=== PATIENT | female | born 1955 | race African-American/Black ===

== ENCOUNTER 2019-01-24 07:04 | Outpatient (CLI) | payer OTHER ==
[~2019-01-24 07:04] MED LIST: ASA325 MG PO; HYZAAR 100-121 UDTAB PO; MECLIZINE HCL25 MG PO
== END 2019-01-24 07:10 | disposition home or self-care (01) ==
LOC: LAB 07:04
DX: D51.1 Vitamin B12 deficiency anemia due to selective vitamin B12 malabsorption with proteinuria (principal); D51.0 Vitamin B12 deficiency anemia due to intrinsic factor deficiency

== ENCOUNTER 2019-05-31 03:20 | Emergency (ER) | payer OTHER ==
[~2019-05-31] VITALS: Ht 165.1 cm; Wt 83.9 kg
[2019-05-31] MEDS ORDERED: TOPROL XL25 M1 (03:36)
[2019-05-31] MEDS ORDERED: ATORVASTATIN CA10 MG (03:36)
== END 2019-05-31 11:46 | disposition home or self-care (01) ==
LOC: ER 03:20
DX: H81.13 Benign paroxysmal vertigo, bilateral (principal); R42 Dizziness and giddiness

== ENCOUNTER 2021-04-22 15:20 | Outpatient (CLI) | payer OTHER ==
[~2021-04-22 15:20] MED LIST changes: +ATORVASTATIN CA10 MG; +TOPROL XL25 M1
== END 2021-04-22 15:30 | disposition home or self-care (01) ==
LOC: PPH VACUNA 15:20
PROVIDERS: ATTEND Emergency Medicine Pediatric Emergency Medicine
DX: Z23 Encounter for immunization (principal)

== ENCOUNTER → 2021-08-18 11:17 | Outpatient (CLI) | payer OTHER | END | disposition home or self-care (01) | LOC: LAB 11:17 | PROVIDERS: ATTEND Radiology Diagnostic Radiology | DX: K57.30 Diverticulosis of large intestine without perforation or abscess without bleeding (principal) ==

== ENCOUNTER 2021-09-09 07:44 | Outpatient (CLI) | payer OTHER | END 2021-09-09 07:47 | disposition home or self-care (01) | LOC: MRI 07:44 | PROVIDERS: ATTEND Internal Medicine Gastroenterology | DX: K57.30 Diverticulosis of large intestine without perforation or abscess without bleeding (principal); K30 Functional dyspepsia; R97.0 Elevated carcinoembryonic antigen [CEA] | CPT/HCPCS: 74183; Q9965 ==

== ENCOUNTER 2021-10-29 07:13 | Outpatient (CLI) | payer OTHER | END 2021-10-29 07:15 | disposition home or self-care (01) | LOC: RAD 07:13 | DX: I15.8 Other secondary hypertension (principal); I10 Essential (primary) hypertension ==

== ENCOUNTER → 2022-05-20 | Outpatient (CLI) | payer OTHER | END | disposition home or self-care (01) | LOC: NUCLEAR 05-18 08:00 | PROVIDERS: ATTEND Internal Medicine | DX: R00.2 Palpitations (principal) ==

== ENCOUNTER 2022-09-17 09:22 | Outpatient (CLI) | payer OTHER | END 2022-09-17 09:26 | disposition home or self-care (01) | LOC: SONOGRAMA 09:22 | PROVIDERS: ATTEND Specialist | DX: R22.2 Localized swelling, mass and lump, trunk (principal) ==

== ENCOUNTER → 2022-10-26 08:38 | Outpatient (CLI) | payer OTHER | END | disposition home or self-care (01) | LOC: LAB 08:38 | PROVIDERS: ATTEND Specialist | DX: E03.9 Hypothyroidism, unspecified (principal); R22.1 Localized swelling, mass and lump, neck; I10 Essential (primary) hypertension; E11.9 Type 2 diabetes mellitus without complications ==

== ENCOUNTER 2022-11-03 06:50 | Day surgery (SDC) | payer OTHER ==
[~2022-11-03 06:50] MED LIST changes: +AMLODIPINE-OLM1 EAC2 PO; +COZAAR100 MG PO; +METFO PO; +PLAVIX75 MG PO; +TIROSINT25 MCG PO; +TOPROL XL25 M1 PO
== END 2022-11-03 17:35 | disposition home or self-care (01) ==
LOC: CIR.AMB 06:50
PROVIDERS: ATTEND Specialist
DX: D17.0 Benign lipomatous neoplasm of skin and subcutaneous tissue of head, face and neck (principal); L72.0 Epidermal cyst; Z88.6 Allergy status to analgesic agent; Z20.822 Contact with and (suspected) exposure to COVID-19

== ENCOUNTER 2023-02-22 09:39 | Outpatient (CLI) | payer OTHER | END 2023-02-22 09:43 | disposition home or self-care (01) | LOC: RAD 09:39 | PROVIDERS: ATTEND Obstetrics & Gynecology Gynecologic Oncology | DX: Z01.818 Encounter for other preprocedural examination (principal); Z20.822 Contact with and (suspected) exposure to COVID-19; N39.0 Urinary tract infection, site not specified; D64.9 Anemia, unspecified; R79.89 Other specified abnormal findings of blood chemistry; Z88.6 Allergy status to analgesic agent ==

== ENCOUNTER 2023-03-01 08:15 | Inpatient (IN) | payer OTHER ==
[~2023-03-01] VITALS: Ht 157.5 cm; Wt 81.6 kg
[2023-03-04] MEDS ORDERED: EZETIMIBE10 MG (14:54)
[2023-03-04] MEDS ORDERED: SPIRONOLACTONE25 MG (14:54)
[2023-03-04] MEDS ORDERED: LOSARTAN POTAS100 MG (14:54)
[2023-03-04] MEDS ORDERED: METFORMIN HCL750 MG (14:54)
[2023-03-04] MEDS ORDERED: AMLODIPINE BESYL5 MG (14:54)
[2023-03-04 20:07] LABS: HEMATOCRIT 37.6 % (36.0-45.00); HEMOGLOBIN 12.4 g/dL (12.0-15.00); MEAN CELL VOLUME 95.3 fL (80.00-100.00); MEAN CORPUSCULAR HEMOGLOBIN 31.4 pg (27.00-32.0); MEAN CORPUSCULAR HGB CONC 32.9 g/dl (32.0-36.0); PLATELET COUNT 370 K/uL (150-450); RED BLOOD COUNT 3.95 M/uL (4.00-6.00)
[2023-03-04 20:23] LABS: ALBUMIN 3.2 gm/dL (3.4-5.0); CALCIUM 8.8 mg/dL (8.5-10.1); CREATININE SERUM 0.68 mg/dL (0.55-1.02); GFR 86.57; MAGNESIUM 2.1 mg/dL (1.8-2.4); PHOSPHOROUS 3.9 mg/dL (2.5-4.9); POTASSIUM 4.58 mEq/L (3.5-5.1)
[2023-03-05 05:36] LABS: ALBUMIN 3.1 gm/dL (3.4-5.0); CALCIUM 8.8 mg/dL (8.5-10.1); CREATININE SERUM 0.52 mg/dL (0.55-1.02); GFR 117.62; PHOSPHOROUS 3.1 mg/dL (2.5-4.9); POTASSIUM 4.88 mEq/L (3.5-5.1)
[2023-03-05 08:58] LABS: HEMATOCRIT 34.9 % (36.0-45.00); HEMOGLOBIN 11.9 g/dL (12.0-15.00); MEAN CELL VOLUME 92.2 fL (80.00-100.00); MEAN CORPUSCULAR HEMOGLOBIN 31.5 pg (27.00-32.0); MEAN CORPUSCULAR HGB CONC 34.2 g/dl (32.0-36.0); PLATELET COUNT 376 K/uL (150-450); RED BLOOD COUNT 3.79 M/uL (4.00-6.00); RED CELL DISTRIBUTION WIDTH 14.7 % (11.5-14.5)
== END 2023-03-05 15:54 | disposition home or self-care (01) | DRG 741 ==
LOC: O/R 03-04 07:13 → SURG 03-04 08:15 → OB/GYN 03-04 19:59 → SURG 03-04 21:30 → OB/GYN 03-05 15:54
PROVIDERS: ADMIT Obstetrics & Gynecology Gynecologic Oncology; ATTEND Obstetrics & Gynecology Gynecologic Oncology
PROC: 0UT24ZZ Resection of Bilateral Ovaries, Percutaneous Endoscopic Approach (ICD-10-PCS; 2023-03-04)
PROC: 0UT74ZZ Resection of Bilateral Fallopian Tubes, Percutaneous Endoscopic Approach (ICD-10-PCS; 2023-03-04)
PROC: 07BD4ZZ Excision of Aortic Lymphatic, Percutaneous Endoscopic Approach (ICD-10-PCS; 2023-03-04)
PROC: 07BC4ZZ Excision of Pelvis Lymphatic, Percutaneous Endoscopic Approach (ICD-10-PCS; 2023-03-04)
PROC: 0UT94ZZ Resection of Uterus, Percutaneous Endoscopic Approach (ICD-10-PCS; principal; 2023-03-04 21:30)
DX: C54.1 Malignant neoplasm of endometrium (principal); Z20.822 Contact with and (suspected) exposure to COVID-19

== ENCOUNTER 2023-11-12 07:29 | Outpatient (CLI) | payer OTHER ==
[~2023-11-12 07:29] MED LIST changes: +AMLODIPINE BESYL5 MG; +EZETIMIBE10 MG; +LOSARTAN POTAS100 MG; +METFORMIN HCL750 MG; +SPIRONOLACTONE25 MG
== END 2023-11-12 07:37 | disposition home or self-care (01) ==
LOC: SONOGRAMA 07:29
PROVIDERS: ATTEND Internal Medicine Gastroenterology
DX: R10.13 Epigastric pain (principal); E04.8 Other specified nontoxic goiter

== ENCOUNTER 2024-01-21 10:34 | Inpatient (IN) | payer OTHER ==
[~2024-01-21] VITALS: Ht 152.4 cm; Wt 68.0 kg
[2024-01-21] MEDS ORDERED: CRESTOR40 MG PO (11:02)
[2024-01-21] MEDS ORDERED: 0.9 % SODIUM CHLORIDE 1,000 ML IV SCH ×2 (12:34→18:45)
[2024-01-21] MEDS ORDERED: ONDANSETRON HCL 2 MG/ML VIAL IV STA (12:35)
[2024-01-21] MEDS ORDERED: FAMOTIDINE/PF 20 MG in 0.9 % SODIUM CHLORIDE 8 ML IV PUSH STA (12:35)
[2024-01-21 14:04] LABS: HEMATOCRIT 36.2 % (36.0-45.00); HEMOGLOBIN 11.9 g/dL (12.0-15.00); MEAN CELL VOLUME 93.9 fL (80.00-100.00); MEAN CORPUSCULAR HEMOGLOBIN 30.9 pg (27.00-32.0); MEAN CORPUSCULAR HGB CONC 32.9 g/dl (32.0-36.0); PLATELET COUNT 566 K/uL (150-450); RED BLOOD COUNT 3.86 M/uL (4.00-6.00); RED CELL DISTRIBUTION WIDTH 16.6 % (11.5-14.5)
[2024-01-21 15:28] LABS: PH,URINE 8.5 (5.0-8.0); URINE APPEARANCE Error; URINE BILIRRUBIN Negative (NEGATIVE); URINE BLOOD Negative; URINE COLOR Yellow; URINE GLUCOSE Negative (NEGATIVE); URINE KETONE Negative (NEGATIVE); URINE LEUKOCYTE Trace; URINE NITRATE Negative; URINE PROTEIN 30 (NEGATIVE)
[2024-01-21 15:29] LABS: URINE BACTERIA 128.4 uL (0.0-1933); URINE EPITHELIAL CELLS 13.6 uL (0.0-38.8); URINE RBC 63.8 uL (0.0-20.8); URINE WBC 9.7 uL (0.0-23.2)
[2024-01-21 16:02] LABS: HEMATOCRIT 36.8 % (36.0-45.00); HEMOGLOBIN 12.1 g/dL (12.0-15.00); MEAN CELL VOLUME 94.3 fL (80.00-100.00); MEAN CORPUSCULAR HGB CONC 32.8 g/dl (32.0-36.0); PLATELET COUNT 578 K/uL (150-450); RED BLOOD COUNT 3.91 M/uL (4.00-6.00); RED CELL DISTRIBUTION WIDTH 16.7 % (11.5-14.5)
[2024-01-21 16:15] LABS: CALCIUM 9.8 mg/dL (8.5-10.1); CREATININE SERUM 0.62 mg/dL (0.55-1.02); GFR 96.01; POTASSIUM 3.59 mEq/L (3.5-5.1)
[2024-01-21] MEDS ORDERED: DEXTROSE 50 % IN WATER 0.5 G/ML DISP.SYRIN IV PRN (18:45)
[2024-01-21] MEDS ORDERED: INSULIN LISPRO 1,000 UNIT/10 ML UNITS SUBCUTANEO PRN (18:45)
[2024-01-21] MEDS ORDERED: PIPERACILLIN/TAZOBACTAM SODIUM 3.375 GM in 0.9 % SODIUM CHLORIDE 100 ML IV SCH (18:55)
[2024-01-21] MEDS ORDERED: ENALAPRILAT DIHYDRATE 1.25 MG/ML VIAL IV PRN (19:00)
[2024-01-21] MEDS ORDERED: MORPHINE SULFATE 4 MG/ML VIAL IV PRN (19:00)
[2024-01-21] MEDS ORDERED: ACETAMINOPHEN 500 MG GEL..CAP PO PRN (19:00)
[2024-01-22 02:31] VITALS: BP 134/67
[2024-01-22 04:21] LABS: HEMOGLOBIN 10.3 g/dL (12.0-15.00); MEAN CELL VOLUME 92.3 fL (80.00-100.00); MEAN CORPUSCULAR HEMOGLOBIN 30.7 pg (27.00-32.0); MEAN CORPUSCULAR HGB CONC 33.3 g/dl (32.0-36.0); PLATELET COUNT 501 K/uL (150-450); RED BLOOD COUNT 3.36 M/uL (4.00-6.00); RED CELL DISTRIBUTION WIDTH 16.7 % (11.5-14.5)
[2024-01-22 04:25] LABS: ERYTHROCYTE SEDIMENTATION RATE 59 mm/hr; INR 1.15; PARTIAL THROMBOPLASTIN TIME 32.8 SECONDS (22.0-34.0); PROTHROMBIN TIME 12.4 SECONDS (9.0-11.5)
[2024-01-22 04:36] LABS: ALBUMIN 3.1 gm/dL (3.4-5.0); BILIRUBIN TOTAL 0.81 mg/dL (0.3-1.2); BILIRUBIN,CONJUGATED 0.24 mg/dL (0.0-0.2); BILIRUBIN,UNCONJUGATED 0.57 mg/dL (0.0-0.6); CALCIUM 9.1 mg/dL (8.5-10.1); CHOL HDL RATIO 1.9 (0-5.0); CREATININE SERUM 0.55 mg/dL (0.55-1.02); GFR 110.25; POTASSIUM 3.7 mEq/L (3.5-5.1); TOTAL PROTEIN 6.1 gm/dL (6.4-8.2)
[2024-01-22] MEDS ORDERED: LEVOTHYROXINE SODIUM 25 MCG TABLET PO SCH (06:00)
[2024-01-22 08:38] LABS: URINE APPEARANCE Cloudy; URINE BILIRRUBIN Negative (NEGATIVE); URINE BLOOD Small; URINE COLOR Yellow; URINE GLUCOSE Negative (NEGATIVE); URINE KETONE Negative (NEGATIVE); URINE LEUKOCYTE Negative; URINE NITRATE Negative; URINE PROTEIN 30 (NEGATIVE); URINE UROBILINOGEN 0.2 E.U./dl
[2024-01-22 08:41] LABS: URINE BACTERIA 154.9 uL (0.0-1933); URINE EPITHELIAL CELLS 10.6 uL (0.0-38.8); URINE RBC 4.8 uL (0.0-20.8); URINE WBC 17.1 uL (0.0-23.2)
[2024-01-22] MEDS ORDERED: PANTOPRAZOLE SODIUM 40 MG TABLET.DR PO SCH (09:00)
[2024-01-22] MEDS ORDERED: AMLODIPINE BESYLATE 5 MG TABLET PO SCH (09:00)
[2024-01-22] MEDS ORDERED: LOSARTAN POTASSIUM 100 MG TABLET PO SCH (09:00)
[2024-01-22] MEDS ORDERED: ENOXAPARIN SODIUM 40 MG/0.4 ML SYRINGE SUBCUTANEO SCH (09:00)
[2024-01-22 09:08] VITALS: BP 123/60; O2SAT 98
[2024-01-22 09:32] LABS: URINE CAST 0.76 uL (0.0-1.40)
[2024-01-22 09:35] LABS: URINE CRYSTALS MANY /HPF
[2024-01-22] MEDS ORDERED: ONDANSETRON HCL 4 MG in 0.9 % SODIUM CHLORIDE 50 ML IV PRN (11:00)
[2024-01-22] MEDS ORDERED: MORPHINE SULFATE 4 MG/ML CARTRIDGE IV PRN (15:45)
[2024-01-22] MEDS ORDERED: SODIUM CHLORIDE 0.45 % 1,000 ML IV SCH (16:30)
[2024-01-22] MEDS ORDERED: ROSUVASTATIN 40 MG PO SCH (17:00)
[2024-01-22 17:25] VITALS: BP 136/73
[2024-01-23 02:30] VITALS: BP 144/74
[2024-01-23] MEDS ORDERED: DIATRIZOATE MEGLUMINE, SODIUM 30 ML BOTTLE PO ONE (06:00)
[2024-01-23 08:31] VITALS: BP 130/64; O2SAT 99
[2024-01-23] MEDS ORDERED: IRON FUM,PS/FOLIC/BCOMP,C NO.9 1 CAP CAPSULE PO SCH (09:00)
[2024-01-23 17:46] VITALS: BP 120/77
[2024-01-23] MEDS ORDERED: LOPERAMIDE HCL 2 MG CAPSULE PO STA (20:14)
[2024-01-24 02:54] VITALS: BP 134/83; O2SAT 95
[2024-01-24 06:47] LABS: HEMATOCRIT 29.5 % (36.0-45.00); HEMOGLOBIN 10.1 g/dL (12.0-15.00); MEAN CELL VOLUME 92.1 fL (80.00-100.00); MEAN CORPUSCULAR HEMOGLOBIN 31.6 pg (27.00-32.0); MEAN CORPUSCULAR HGB CONC 34.3 g/dl (32.0-36.0); PLATELET COUNT 494 K/uL (150-450); RED BLOOD COUNT 3.21 M/uL (4.00-6.00); RED CELL DISTRIBUTION WIDTH 16.5 % (11.5-14.5)
[2024-01-24 06:51] LABS: ALBUMIN 2.9 gm/dL (3.4-5.0); BILIRUBIN TOTAL 0.67 mg/dL (0.3-1.2); CALCIUM 8.7 mg/dL (8.5-10.1); CREATININE SERUM 0.45 mg/dL (0.55-1.02); GFR 138.97; GLOBULINA 3.1 G/DL (2.4-3.5); MAGNESIUM 1.9 mg/dL (1.8-2.4); PHOSPHOROUS 3.1 mg/dL (2.5-4.9); POTASSIUM 3.68 mEq/L (3.5-5.1)
[2024-01-24 08:09] VITALS: BP 130/69
[2024-01-24 17:08] VITALS: BP 153/72
[2024-01-24 17:10] VITALS: BP 153/72
[2024-01-24] MEDS ORDERED: MORPHINE SULFATE 4 MG/ML CARTRIDGE IV PRN (18:15)
[2024-01-25 00:47] VITALS: BP 134/70; O2SAT 98
[2024-01-25 06:34] LABS: HEMATOCRIT 28.8 % (36.0-45.00); HEMOGLOBIN 9.9 g/dL (12.0-15.00); MEAN CELL VOLUME 92.8 fL (80.00-100.00); MEAN CORPUSCULAR HGB CONC 34.5 g/dl (32.0-36.0); PLATELET COUNT 507 K/uL (150-450); RED CELL DISTRIBUTION WIDTH 16.1 % (11.5-14.5)
[2024-01-25 06:40] LABS: ALBUMIN 2.5 gm/dL (3.4-5.0); BILIRUBIN TOTAL 0.53 mg/dL (0.3-1.2); CALCIUM 8.4 mg/dL (8.5-10.1); CREATININE SERUM 0.43 mg/dL (0.55-1.02); GFR 146.46; GLOBULINA 3.1 G/DL (2.4-3.5); POTASSIUM 3.3 mEq/L (3.5-5.1); TOTAL PROTEIN 5.6 gm/dL (6.4-8.2)
[2024-01-25 08:04] VITALS: BP 140/66
[2024-01-25] MEDS ORDERED: POTASSIUM CHLORIDE IN WATER 100 ML IV NR (13:00)
[2024-01-25 16:05] VITALS: BP 132/73; O2SAT 94
[2024-01-26 01:02] VITALS: BP 130/74; O2SAT 95
[2024-01-26 06:31] LABS: HEMATOCRIT 28.7 % (36.0-45.00); HEMOGLOBIN 9.5 g/dL (12.0-15.00); MEAN CELL VOLUME 92.7 fL (80.00-100.00); MEAN CORPUSCULAR HEMOGLOBIN 30.8 pg (27.00-32.0); MEAN CORPUSCULAR HGB CONC 33.2 g/dl (32.0-36.0); PLATELET COUNT 491 K/uL (150-450); RED BLOOD COUNT 3.09 M/uL (4.00-6.00); RED CELL DISTRIBUTION WIDTH 16.1 % (11.5-14.5)
[2024-01-26 07:00] LABS: ALBUMIN 2.2 gm/dL (3.4-5.0); BILIRUBIN TOTAL 0.4 mg/dL (0.3-1.2); CALCIUM 8.7 mg/dL (8.5-10.1); CREATININE SERUM 0.47 mg/dL (0.55-1.02); GFR 132.17; PHOSPHOROUS 2.3 mg/dL (2.5-4.9); POTASSIUM 3.36 mEq/L (3.5-5.1); TOTAL PROTEIN 5.2 gm/dL (6.4-8.2)
[2024-01-26 08:24] VITALS: BP 124/76
[2024-01-26] MEDS ORDERED: POTASSIUM BICARBONATE/CIT AC 25 MEQ TABLET.EFF PO NR (11:15)
[2024-01-26] MEDS ORDERED: POTASSIUM PHOS,M-BASIC-D-BASIC 15 MM in 0.9 % SODIUM CHLORIDE 250 ML IV NR (11:15)
[2024-01-26] MEDS ORDERED: LIDOCAINE HCL 1% 10ML VIAL IJ ONE (18:15)
[2024-01-26] MEDS ORDERED: BUPIVACAINE HCL 30 ML VIAL IJ ONE (18:15)
[2024-01-26] MEDS ORDERED: CEFAZOLIN SODIUM 1,000 MG VIAL IV ONE (18:15)
[2024-01-27 01:28] VITALS: BP 144/72; O2SAT 90
[2024-01-27] MEDS ORDERED: MORPHINE SULFATE 4 MG/ML CARTRIDGE IV PRN (02:15)
[2024-01-27 07:10] LABS: ALBUMIN 2.1 gm/dL (3.4-5.0); BILIRUBIN TOTAL 0.28 mg/dL (0.3-1.2); CALCIUM 8.3 mg/dL (8.5-10.1); CREATININE SERUM 0.38 mg/dL (0.55-1.02); GFR 168.92; POTASSIUM 3.64 mEq/L (3.5-5.1); TOTAL PROTEIN 5.1 gm/dL (6.4-8.2)
[2024-01-27 07:24] LABS: HEMATOCRIT 26.6 % (36.0-45.00); MEAN CELL VOLUME 91.8 fL (80.00-100.00); MEAN CORPUSCULAR HEMOGLOBIN 31.1 pg (27.00-32.0); MEAN CORPUSCULAR HGB CONC 33.9 g/dl (32.0-36.0); PLATELET COUNT 510 K/uL (150-450); RED CELL DISTRIBUTION WIDTH 16.1 % (11.5-14.5)
[2024-01-27 08:59] VITALS: BP 128/65; O2SAT 94
[2024-01-27] MEDS ORDERED: AMINO ACIDS/PROTEIN HYDROLYS 30 ML BLIST.PACK PO SCH (17:00)
[2024-01-27 17:24] VITALS: BP 114/70; O2SAT 97
[2024-01-28 00:46] VITALS: BP 131/73; O2SAT 92
[2024-01-28 08:08] VITALS: BP 145/74; O2SAT 99
[2024-01-28 17:07] VITALS: BP 135/82; O2SAT 98
[2024-01-28] MEDS ORDERED: MAGNESIUM HYDROXIDE 400 MG/5 ML ML PO ONE (20:30)
[2024-01-28] MEDS ORDERED: LACTULOSE 20 G/30 ML BLIST.PACK PO ONE (20:30)
[2024-01-28] MEDS ORDERED: MINERAL OIL 30 ML BLIST.PACK PO ONE (20:30)
[2024-01-29] VITALS: BP 145/85; O2SAT 98
[2024-01-29 07:35] LABS: ALBUMIN 2.3 gm/dL (3.4-5.0); BILIRUBIN TOTAL 0.26 mg/dL (0.3-1.2); CALCIUM 8.4 mg/dL (8.5-10.1); CREATININE SERUM 0.37 mg/dL (0.55-1.02); GFR 174.2; GLOBULINA 3.4 G/DL (2.4-3.5); POTASSIUM 3.71 mEq/L (3.5-5.1); TOTAL PROTEIN 5.7 gm/dL (6.4-8.2)
[2024-01-29 07:53] LABS: HEMOGLOBIN 9.2 g/dL (12.0-15.00); MEAN CELL VOLUME 91.1 fL (80.00-100.00); MEAN CORPUSCULAR HEMOGLOBIN 30.9 pg (27.00-32.0); MEAN CORPUSCULAR HGB CONC 33.9 g/dl (32.0-36.0); PLATELET COUNT 561 K/uL (150-450); RED BLOOD COUNT 2.97 M/uL (4.00-6.00); RED CELL DISTRIBUTION WIDTH 16.4 % (11.5-14.5)
[2024-01-29 08:59] VITALS: BP 144/71; O2SAT 95
[2024-01-29 16:39] VITALS: BP 135/77
[2024-01-30 01:00] VITALS: BP 97/69; O2SAT 98
[2024-01-30 08:00] VITALS: BP 142/82; O2SAT 96
[2024-01-30 16:58] VITALS: BP 143/78; O2SAT 93
[2024-01-30] MEDS ORDERED: MORPHINE SULFATE 4 MG/ML CARTRIDGE IV PRN (17:30)
[2024-01-30] MEDS ORDERED: ACETAMINOPHEN 500 MG GEL..CAP PO PRN (17:30)
[2024-01-31 01:27] VITALS: BP 128/68; O2SAT 98
[2024-01-31 08:27] VITALS: BP 147/79; O2SAT 96
[2024-01-31 15:50] VITALS: BP 136/78; O2SAT 93
[2024-02-01 00:10] VITALS: BP 135/78
[2024-02-01 06:17] LABS: HEMATOCRIT 27.9 % (36.0-45.00); HEMOGLOBIN 9.4 g/dL (12.0-15.00); MEAN CELL VOLUME 92.3 fL (80.00-100.00); MEAN CORPUSCULAR HEMOGLOBIN 31.2 pg (27.00-32.0); MEAN CORPUSCULAR HGB CONC 33.8 g/dl (32.0-36.0); PLATELET COUNT 716 K/uL (150-450); RED BLOOD COUNT 3.02 M/uL (4.00-6.00)
[2024-02-01 06:34] LABS: ALBUMIN 2.5 gm/dL (3.4-5.0); BILIRUBIN TOTAL 0.27 mg/dL (0.3-1.2); CALCIUM 8.9 mg/dL (8.5-10.1); CREATININE SERUM 0.38 mg/dL (0.55-1.02); GFR 168.92; GLOBULINA 3.3 G/DL (2.4-3.5); MAGNESIUM 1.8 mg/dL (1.8-2.4); PHOSPHOROUS 3.3 mg/dL (2.5-4.9); POTASSIUM 4.3 mEq/L (3.5-5.1); TOTAL PROTEIN 5.8 gm/dL (6.4-8.2)
[2024-02-01 08:15] VITALS: BP 123/80; O2SAT 97
[2024-02-01 17:29] VITALS: BP 150/73
[2024-02-01 17:42] VITALS: BP 136/69
[2024-02-02 00:11] VITALS: BP 151/72; O2SAT 96
[2024-02-02 05:02] LABS: INR 1.05; PARTIAL THROMBOPLASTIN TIME 29.5 SECONDS (22.0-34.0); PROTHROMBIN TIME 11.4 SECONDS (9.0-11.5)
[2024-02-02] MEDS ORDERED: ONDANSETRON HCL 4 MG in 0.9 % SODIUM CHLORIDE 50 ML IV PRN (07:00)
[2024-02-02 09:43] VITALS: BP 131/80; O2SAT 97
[2024-02-02] MEDS ORDERED: BUPIVACAINE HCL/PF 0.25% 30ML VIAL InF ONE (14:45)
[2024-02-02] MEDS ORDERED: HEPARIN SODIUM,PORCINE 500 UNITS/5 ML VIAL IV ONE (14:45)
[2024-02-02] MEDS ORDERED: CEFAZOLIN SODIUM 1,000 MG VIAL IV ONE (15:45)
[2024-02-02 18:36] VITALS: BP 149/69
[2024-02-03 01:35] VITALS: BP 156/80; O2SAT 98
[2024-02-03 07:09] LABS: HEMATOCRIT 26.5 % (36.0-45.00); MEAN CELL VOLUME 92.6 fL (80.00-100.00); MEAN CORPUSCULAR HGB CONC 33.4 g/dl (32.0-36.0); PLATELET COUNT 724 K/uL (150-450); RED BLOOD COUNT 2.86 M/uL (4.00-6.00); RED CELL DISTRIBUTION WIDTH 16.5 % (11.5-14.5)
[2024-02-03 07:26] LABS: MEAN CORPUSCULAR HEMOGLOBIN 30.7 pg (27.00-32.0)
[2024-02-03 07:27] LABS: HEMOGLOBIN 8.8 g/dL (12.0-15.00)
[2024-02-03 08:37] VITALS: BP 110/68; O2SAT 97
[2024-02-03] MEDS ORDERED: LOSARTAN POTAS100 MG PO (13:09)
[2024-02-03] MEDS ORDERED: LEVOTHYROXINE25 MCG PO (13:09)
[2024-02-03] MEDS ORDERED: AMLODIPINE BESYL5 MG PO (13:09)
[2024-02-03] MEDS ORDERED: INTEGRA PLUS C1 EACH PO (13:09)
[2024-02-03] MEDS ORDERED: COLACE100 MG PO (13:09)
[2024-02-03] MEDS ORDERED: CRESTOR40 MG PO (13:10)
== END 2024-02-03 13:22 | disposition home or self-care (01) | DRG 823 ==
LOC: ER 10:36 → MEDI 19:32
PROVIDERS: Emergency Medicine; General Practice; Student in an Organized Health Care Education/Training Program; ADMIT Internal Medicine; ATTEND Internal Medicine
PROC: BW21ZZZ Computerized Tomography (CT Scan) of Abdomen and Pelvis (ICD-10-PCS; 2024-01-21)
PROC: BW21YZZ Computerized Tomography (CT Scan) of Abdomen and Pelvis using Other Contrast (ICD-10-PCS; 2024-01-23)
PROC: BW24YZZ Computerized Tomography (CT Scan) of Chest and Abdomen using Other Contrast (ICD-10-PCS; 2024-01-23)
PROC: 07BJ0ZX Excision of Left Inguinal Lymphatic, Open Approach, Diagnostic (ICD-10-PCS; principal; 2024-01-27)
PROC: 05HM33Z Insertion of Infusion Device into Right Internal Jugular Vein, Percutaneous Approach (ICD-10-PCS; 2024-02-02)
PROC: B513YZA Fluoroscopy of Right Jugular Veins using Other Contrast, Guidance (ICD-10-PCS; 2024-02-02)
PROC: B543ZZA Ultrasonography of Right Jugular Veins, Guidance (ICD-10-PCS; 2024-02-02)
DX: C77.4 Secondary and unspecified malignant neoplasm of inguinal and lower limb lymph nodes (principal); A41.9 Sepsis, unspecified organism; K65.1 Peritoneal abscess; C78.6 Secondary malignant neoplasm of retroperitoneum and peritoneum; E87.0 Hyperosmolality and hypernatremia; J90 Pleural effusion, not elsewhere classified; C54.1 Malignant neoplasm of endometrium; I10 Essential (primary) hypertension; E11.9 Type 2 diabetes mellitus without complications; Z79.4 Long term (current) use of insulin; D63.0 Anemia in neoplastic disease; E03.9 Hypothyroidism, unspecified; E78.5 Hyperlipidemia, unspecified; D75.839 Thrombocytosis, unspecified

== ENCOUNTER 2024-05-19 09:18 | Outpatient (CLI) | payer OTHER ==
[~2024-05-19 09:18] MED LIST changes: +AMLODIPINE BESYL5 MG PO; +COLACE100 MG PO; +CRESTOR40 MG PO; +INTEGRA PLUS C1 EACH PO; +LEVOTHYROXINE25 MCG PO; +LOSARTAN POTAS100 MG PO
== END 2024-05-19 09:21 | disposition home or self-care (01) ==
LOC: SONOGRAMA 09:18
PROVIDERS: ATTEND Internal Medicine
DX: R10.9 Unspecified abdominal pain (principal); C54.1 Malignant neoplasm of endometrium

== ENCOUNTER 2024-05-22 20:53 | Emergency (ER) | payer OTHER ==
[~2024-05-22] VITALS: Ht 160 cm; Wt 67.1 kg
[2024-05-22] MEDS ORDERED: FAMOTIDINE/PF 20 MG in 0.9 % SODIUM CHLORIDE 8 ML IV PUSH STA (22:40)
[2024-05-22] MEDS ORDERED: ONDANSETRON HCL 2 MG/ML VIAL IV ONE (22:45)
[2024-05-22] MEDS ORDERED: 0.9 % SODIUM CHLORIDE 1,000 ML IV SCH (22:45)
[2024-05-22] MEDS ORDERED: ONDANSETRON HCL 2 MG/ML VIAL ONE (23:16)
[2024-05-22] MEDS ORDERED: FAMOTIDINE/PF 20 MG/2 ML VIAL ONE (23:16)
[2024-05-23 00:25] LABS: HEMATOCRIT 24.2 % (36.0-45.00); MEAN CELL VOLUME 100.3 fL (80.00-100.00); MEAN CORPUSCULAR HGB CONC 33.3 g/dl (32.0-36.0); PLATELET COUNT 193 K/uL (150-450); RED BLOOD COUNT 2.41 M/uL (4.00-6.00); RED CELL DISTRIBUTION WIDTH 19.5 % (11.5-14.5)
[2024-05-23 00:31] LABS: HEMOGLOBIN 8.1 g/dL (12.0-15.00); MEAN CORPUSCULAR HEMOGLOBIN 33.6 pg (27.00-32.0)
[2024-05-23 00:40] LABS: ALBUMIN 3.4 gm/dL (3.4-5.0); BILIRUBIN TOTAL 0.26 mg/dL (0.3-1.2); CALCIUM 9.6 mg/dL (8.5-10.1); CREATININE SERUM 0.58 mg/dL (0.55-1.02); GFR 103.38; POTASSIUM 4.23 mEq/L (3.5-5.1); TOTAL PROTEIN 6.4 gm/dL (6.4-8.2)
[2024-05-23 01:43] LABS: PH,URINE 6.5 (5.0-8.0); URINE APPEARANCE Clear; URINE BILIRRUBIN Negative (NEGATIVE); URINE BLOOD Negative; URINE COLOR Yellow; URINE GLUCOSE Negative (NEGATIVE); URINE KETONE 15 (NEGATIVE); URINE LEUKOCYTE Small; URINE NITRATE Negative; URINE PROTEIN Trace (NEGATIVE)
[2024-05-23 01:48] LABS: URINE BACTERIA 118.6 uL (0.0-1933); URINE EPITHELIAL CELLS 13.7 uL (0.0-38.8); URINE RBC 20.7 uL (0.0-20.8)
[2024-05-23 02:22] LABS: URINE CAST 0.14 uL (0.0-1.40)
[2024-05-23 02:44] LABS: PROTHROMBIN TIME 10.9 SECONDS (9.0-11.5)
[2024-05-23 03:46] LABS: PARTIAL THROMBOPLASTIN TIME < 20.0 SECONDS (22.0-34.0)
== END 2024-05-23 07:27 | disposition home or self-care (01) ==
LOC: ER 20:55
PROVIDERS: General Practice
DX: K29.70 Gastritis, unspecified, without bleeding (principal); T45.1X5A Adverse effect of antineoplastic and immunosuppressive drugs, initial encounter; R10.9 Unspecified abdominal pain; R11.2 Nausea with vomiting, unspecified; I10 Essential (primary) hypertension; E11.9 Type 2 diabetes mellitus without complications; Z88.6 Allergy status to analgesic agent
CPT/HCPCS: 36415 ×2; 74176; 96365; 96366; 99284; J2405; J7030

== ENCOUNTER 2024-06-10 11:58 | Inpatient (IN) | payer OTHER ==
[~2024-06-10] VITALS: Ht 157.5 cm; Wt 68.0 kg
[2024-06-10] MEDS ORDERED: DICYCLOMINE HCL 10 MG CAPSULE PO ONE (13:54)
[2024-06-10] MEDS ORDERED: DICYCLOMINE HCL 20 MG TABLET PO ONE (14:00)
[2024-06-10 14:39] LABS: HEMATOCRIT 26.2 % (36.0-45.00); MEAN CELL VOLUME 101.6 fL (80.00-100.00); MEAN CORPUSCULAR HEMOGLOBIN 34.1 pg (27.00-32.0); MEAN CORPUSCULAR HGB CONC 33.6 g/dl (32.0-36.0); PLATELET COUNT 559 K/uL (150-450); RED BLOOD COUNT 2.58 M/uL (4.00-6.00)
[2024-06-10 14:41] LABS: INR 1.06; PARTIAL THROMBOPLASTIN TIME 20.6 SECONDS (22.0-34.0); PROTHROMBIN TIME 11.5 SECONDS (9.0-11.5)
[2024-06-10 14:42] LABS: URINE APPEARANCE Clear; URINE BILIRRUBIN Negative (NEGATIVE); URINE BLOOD Negative; URINE COLOR Yellow; URINE GLUCOSE Negative (NEGATIVE); URINE KETONE Trace (NEGATIVE); URINE LEUKOCYTE Negative; URINE NITRATE Negative; URINE PROTEIN Trace (NEGATIVE)
[2024-06-10 14:43] LABS: HEMOGLOBIN 8.8 g/dL (12.0-15.00)
[2024-06-10 14:43] LABS: URINE EPITHELIAL CELLS 6.6 uL (0.0-38.8); URINE RBC 9.7 uL (0.0-20.8); URINE WBC 7.9 uL (0.0-23.2)
[2024-06-10 14:47] LABS: URINE CAST 0.73 uL (0.0-1.40)
[2024-06-10 14:47] LABS: ALBUMIN 2.8 gm/dL (3.4-5.0); BILIRUBIN TOTAL 0.24 mg/dL (0.3-1.2); CALCIUM 9.5 mg/dL (8.5-10.1); CREATININE SERUM 0.6 mg/dL (0.55-1.02); GFR 99.41; GLOBULINA 3.6 G/DL (2.4-3.5); POTASSIUM 4.23 mEq/L (3.5-5.1); TOTAL PROTEIN 6.4 gm/dL (6.4-8.2)
[2024-06-10] MEDS ORDERED: PIPERACILLIN/TAZOBACTAM SODIUM 3.375 GM VIAL IV ONE ×2 (15:15→15:24)
[2024-06-10] MEDS ORDERED: FAMOtidine 10 MG/ML (4ML VIAL) IV ONE (15:15)
[2024-06-10] MEDS ORDERED: FAMOTIDINE/PF 20 MG/2 ML VIAL ONE (15:24)
[2024-06-10] MEDS ORDERED: CEFTRIAXONE SODIUM 1,000 MG VIAL ONE (18:05)
[2024-06-10] MEDS ORDERED: CEFTRIAXONE SODIUM 1,000 MG VIAL IV ONE (18:15)
[2024-06-10] MEDS ORDERED: ONDANSETRON HCL 4 MG in 0.9 % SODIUM CHLORIDE 50 ML IV PRN (21:00)
[2024-06-10] MEDS ORDERED: INSULIN LISPRO 1,000 UNIT/10 ML UNITS SUBCUTANEO PRN (21:00)
[2024-06-10] MEDS ORDERED: 0.9 % SODIUM CHLORIDE 1,000 ML IV SCH (21:00)
[2024-06-10] MEDS ORDERED: DEXTROSE 50 % IN WATER 0.5 G/ML DISP.SYRIN IV PRN (21:00)
[2024-06-10] MEDS ORDERED: ACETAMINOPHEN 325 MG TABLET PO PRN (21:00)
[2024-06-11 00:08] VITALS: BP 121/67; O2SAT 96
[2024-06-11 03:37] VITALS: BP 122/66
[2024-06-11] MEDS ORDERED: LEVOTHYROXINE SODIUM 25 MCG TABLET PO SCH (06:00)
[2024-06-11] MEDS ORDERED: IRON FUM,PS/FOLIC/BCOMP,C NO.9 1 CAP CAPSULE PO SCH (09:00)
[2024-06-11] MEDS ORDERED: METOPROLOL SUCCINATE 25 MG TAB.SR.24H PO SCH (09:00)
[2024-06-11] MEDS ORDERED: PANTOPRAZOLE SODIUM 40 MG/VIAL VIAL IV SCH (09:00)
[2024-06-11] MEDS ORDERED: AMLODIPINE BESYLATE 5 MG TABLET PO SCH (09:00)
[2024-06-11] MEDS ORDERED: LOSARTAN POTASSIUM 100 MG TABLET PO SCH (09:00)
[2024-06-11] MEDS ORDERED: CEFTRIAXONE SODIUM 2,000 MG in 0.9 % SODIUM CHLORIDE 100 ML IV SCH (09:00)
[2024-06-11 09:10] VITALS: BP 106/64
[2024-06-11] MEDS ORDERED: LACTOBACILLUS ACIDOPHILUS 1 CAP CAP PO SCH (17:07)
[2024-06-11] MEDS ORDERED: LINEZOLID IN DEXTROSE 5% 600 MG/300 ML PIGGYBAG IV STA (17:07)
[2024-06-11] MEDS ORDERED: METRONIDAZOLE/SODIUM CHLORIDE 500 MG/100 ML PIGGYBACK IV STA (17:08)
[2024-06-11] MEDS ORDERED: DOCUSATE SODIUM 100MG CAP PO SCH (17:55)
[2024-06-11] MEDS ORDERED: POLYETHYLENE GLYCOL 3350 17 GM BLIST.PACK PO SCH (17:55)
[2024-06-11] MEDS ORDERED: OxyCODONE HCL/APAP UD (PERCOCET) PO PRN (18:00)
[2024-06-11] MEDS ORDERED: DOCUSATE SODIUM 100MG CAP PO ONE (18:34)
[2024-06-11 19:11] VITALS: BP 126/74; O2SAT 97
[2024-06-11] MEDS ORDERED: LINEZOLID IN DEXTROSE 5% 600 MG/300 ML PIGGYBAG IV SCH (21:00)
[2024-06-11] MEDS ORDERED: PATIENTS OWN MEDICATION (MEDICAMENTO EN PHA) PO SCH (21:00)
[2024-06-12] MEDS ORDERED: METRONIDAZOLE/SODIUM CHLORIDE 500 MG/100 ML PIGGYBACK IV SCH (01:00)
[2024-06-12 03:17] VITALS: BP 160/84
[2024-06-12 09:01] VITALS: BP 131/64; O2SAT 98
[2024-06-12] MEDS ORDERED: CEFTRIAXONE SODIUM 2,000 MG VIAL ONE ×2 (09:02→14:04)
[2024-06-12 13:06] LABS: HEMATOCRIT 30.4 % (36.0-45.00); HEMOGLOBIN 10.2 g/dL (12.0-15.00); MEAN CELL VOLUME 94.4 fL (80.00-100.00); MEAN CORPUSCULAR HEMOGLOBIN 31.6 pg (27.00-32.0); MEAN CORPUSCULAR HGB CONC 33.5 g/dl (32.0-36.0); PLATELET COUNT 546 K/uL (150-450); RED BLOOD COUNT 3.23 M/uL (4.00-6.00); RED CELL DISTRIBUTION WIDTH 22.5 % (11.5-14.5)
[2024-06-12 13:44] LABS: ALBUMIN 2.9 gm/dL (3.4-5.0); BILIRUBIN TOTAL 0.66 mg/dL (0.3-1.2); CALCIUM 9.3 mg/dL (8.5-10.1); CREATININE SERUM 0.52 mg/dL (0.55-1.02); GFR 117.26; GLOBULINA 2.9 G/DL (2.4-3.5); PHOSPHOROUS 2.9 mg/dL (2.5-4.9); POTASSIUM 3.42 mEq/L (3.5-5.1); TOTAL PROTEIN 5.8 gm/dL (6.4-8.2)
[2024-06-12 14:00] LABS: MAGNESIUM 1.3 mg/dL (1.8-2.4)
[2024-06-12] MEDS ORDERED: MAGNESIUM SULFATE IN WATER 4 GM/100 ML PIGGYBACK IV STA (15:30)
[2024-06-12 16:53] VITALS: BP 142/75
[2024-06-12] MEDS ORDERED: POTASSIUM CHLORIDE 20MEQ/100ML H2O PB IV NR (18:00)
[2024-06-13 00:52] VITALS: BP 142/82
[2024-06-13] MEDS ORDERED: CEFTRIAXONE SODIUM 2,000 MG VIAL ONE (08:50)
[2024-06-13 09:01] VITALS: BP 142/81; O2SAT 99
[2024-06-13 11:17] LABS: HEMATOCRIT 35.9 % (36.0-45.00); HEMOGLOBIN 12.3 g/dL (12.0-15.00); MEAN CELL VOLUME 94.6 fL (80.00-100.00); MEAN CORPUSCULAR HEMOGLOBIN 32.3 pg (27.00-32.0); MEAN CORPUSCULAR HGB CONC 34.2 g/dl (32.0-36.0); RED BLOOD COUNT 3.79 M/uL (4.00-6.00); RED CELL DISTRIBUTION WIDTH 21.7 % (11.5-14.5)
[2024-06-13 11:37] LABS: PLATELET COUNT 574 K/uL (150-450)
[2024-06-13 11:54] LABS: BILIRUBIN TOTAL 0.37 mg/dL (0.3-1.2); CALCIUM 9.1 mg/dL (8.5-10.1); CREATININE SERUM 0.51 mg/dL (0.55-1.02); GFR 119.92; POTASSIUM 3.33 mEq/L (3.5-5.1)
[2024-06-13] MEDS ORDERED: POTASSIUM BICARBONATE/CIT AC 25 MEQ TABLET.EFF PO STA (15:14)
[2024-06-13] MEDS ORDERED: MAGNESIUM CHLORIDE 70 MG TABLET.DR PO STA (15:14)
[2024-06-13] MEDS ORDERED: MAG-OXIDE200 MG PO (15:31)
[2024-06-13] MEDS ORDERED: METRONIDAZOLE500 MG PO (15:32)
[2024-06-13] MEDS ORDERED: INTEGRA PLUS C1 EACH PO (15:32)
[2024-06-13] MEDS ORDERED: CIPROFLOXACIN500 MG PO (15:32)
[2024-06-13] MEDS ORDERED: TRAM1TAB98 PO (15:33)
[2024-06-13] MEDS ORDERED: LOSARTAN POTAS100 MG PO (15:33)
[2024-06-13] MEDS ORDERED: AMLODIPINE BESYL5 MG PO (15:33)
[2024-06-13] MEDS ORDERED: TOPROL XL25 M1 PO (15:33)
[2024-06-13] MEDS ORDERED: LEVOTHYROXINE25 MCG PO (15:34)
[2024-06-13] MEDS ORDERED: DOCUSATE CALCI240 MG PO (15:34)
[2024-06-13] MEDS ORDERED: INTESTINEX680 M1 PO (15:34)
[2024-06-13] MEDS ORDERED: CRESTOR40 MG PO (15:35)
[2024-06-13] MEDS ORDERED: LINEZOLID 600 MG TABLET PO SCH (21:00)
== END 2024-06-13 15:42 | disposition home or self-care (01) | DRG 812 ==
LOC: ER 12:00 → MEDJ 22:28
PROVIDERS: General Practice; Internal Medicine Infectious Disease; ADMIT Internal Medicine; ATTEND Internal Medicine
PROC: BW21YZZ Computerized Tomography (CT Scan) of Abdomen and Pelvis using Other Contrast (ICD-10-PCS; principal; 2024-06-10)
PROC: 30233N1 Transfusion of Nonautologous Red Blood Cells into Peripheral Vein, Percutaneous Approach (ICD-10-PCS; 2024-06-11)
DX: D64.81 Anemia due to antineoplastic chemotherapy (principal); D72.828 Other elevated white blood cell count; C54.1 Malignant neoplasm of endometrium; E78.5 Hyperlipidemia, unspecified; I10 Essential (primary) hypertension; E03.9 Hypothyroidism, unspecified; E11.9 Type 2 diabetes mellitus without complications; Z79.4 Long term (current) use of insulin; N30.80 Other cystitis without hematuria

== ENCOUNTER 2024-07-06 11:28 | Emergency (ER) | payer OTHER ==
[~2024-07-06] VITALS: Ht 157.5 cm; Wt 63.5 kg
[~2024-07-06 11:28] MED LIST changes: +CIPROFLOXACIN500 MG PO; +DOCUSATE CALCI240 MG PO; +INTESTINEX680 M1 PO; +MAG-OXIDE200 MG PO; +METRONIDAZOLE500 MG PO; +TRAM1TAB98 PO
== END 2024-07-06 15:13 | disposition home or self-care (01) ==
LOC: ER 11:30
DX: S89.81XA Other specified injuries of right lower leg, initial encounter (principal); W19.XXXA Unspecified fall, initial encounter; Y93.89 Activity, other specified; Y92.89 Other specified places as the place of occurrence of the external cause; Z88.6 Allergy status to analgesic agent; C53.9 Malignant neoplasm of cervix uteri, unspecified; E11.9 Type 2 diabetes mellitus without complications; Z79.84 Long term (current) use of oral hypoglycemic drugs

== ENCOUNTER 2024-08-21 08:38 | Outpatient (CLI) | payer OTHER | END 2024-08-21 08:47 | disposition home or self-care (01) | LOC: TOM 08:38 | DX: C54.1 Malignant neoplasm of endometrium (principal) | CPT/HCPCS: 71260; 74177; Q9965 ==

== ENCOUNTER 2024-09-10 16:02 | Inpatient (IN) | payer OTHER ==
[~2024-09-10] VITALS: Ht 157.5 cm; Wt 59.0 kg
--- NOTE | 2024-09-10 16:25 | NUR ---
SE RECIBE PTE ALERTA, ORIENTADA X3. PTE PRESENTA REFERIDO PARA TRANFUCION DE ISAAC POR ANEMIA. PTE DE DR. TOPHER BUTTS. SE MIDEN S/V Y SE UBICA.
--- NOTE | 2024-09-10 17:55 | NUR ---
KIZZY ZELAYA EDUCA ACERCA DE TX ORDENADO Y REFEIRE ENTENDER. SE CANALIZA Y COLECTAN MUESTRAS DE LABORATORIO MEDIANTE MEDIDAS ASEPTICAS.
[2024-09-10 17:56] LABS: BASO % 0.1 % (0.1-1.2); EOS # 0.01 (0.04-0.54); LYMPH # 1.22 (1.18-3.74); LYMPH % 4.8 % (19.3-53.1); MEAN CORPUSCULAR HEMOGLOBIN 28.7 pg (25.6-32.2); MONO # 1.03 (0.24-0.82); MONO % 4.1 % (4.7-12.5); NEUT # 21.96 (1.56-6.13); NEUT % 87.3 % (34.0-71.1); PLATELET COUNT 565 K/uL (163-369); RED BLOOD COUNT 2.61 M/uL (3.93-5.22); RED CELL DISTRIBUTION WIDTH 18.6 % (11.6-14.4)
[2024-09-10 18:05] LABS: HEMATOCRIT 23.7 % (34.1-44.9)
[2024-09-10 18:07] LABS: HEMOGLOBIN 7.5 g/dL (11.2-15.7)
[2024-09-10 18:14] LABS: INR 1.13; PARTIAL THROMBOPLASTIN TIME 29.8 SECONDS (22.0-34.0); PROTHROMBIN TIME 12.2 SECONDS (9.0-11.5)
[2024-09-10 18:21] LABS: ALBUMIN 1.3 gm/dL (3.4-5.0); BILIRUBIN TOTAL 0.32 mg/dL (0.3-1.2); CALCIUM 8.4 mg/dL (8.5-10.1); CREATININE SERUM 0.61 mg/dL (0.55-1.02); GFR 97.53; GLOBULINA 4.7 G/DL (2.4-3.5); POTASSIUM 4.04 mEq/L (3.5-5.1)
[2024-09-10] MEDS ORDERED: INSULIN LISPRO 1,000 UNIT/10 ML UNITS SUBCUTANEO PRN (19:00)
[2024-09-10] MEDS ORDERED: ONDANSETRON HCL 4 MG in 0.9 % SODIUM CHLORIDE 50 ML IV PRN (19:00)
[2024-09-10] MEDS ORDERED: ACETAMINOPHEN 325 MG TABLET PO PRN (19:00)
[2024-09-10] MEDS ORDERED: DEXTROSE 50 % IN WATER 0.5 G/ML DISP.SYRIN IV PRN (19:00)
[2024-09-10] MEDS ORDERED: FUROsemide 20 MG/2 ML VIAL IV PRN (19:15)
[2024-09-10] MEDS ORDERED: 0.9 % SODIUM CHLORIDE 1,000 ML IV SCH (19:15)
[2024-09-10 22:31] LABS: COVID-19 AG NEGATIVE (NEGATIVE)
[2024-09-10 22:32] LABS: INFLUENZA A AG NEGATIVE (NEGATIVE)
[2024-09-10 22:55] VITALS: BP 136/82; O2SAT 96
[2024-09-11 01:23] VITALS: BP 114/72
[2024-09-11] MEDS ORDERED: LEVOTHYROXINE SODIUM 25 MCG TABLET PO SCH (06:00)
[2024-09-11 06:46] LABS: URINE BACTERIA 305.9 uL (0.0-1933); URINE EPITHELIAL CELLS 16.7 uL (0.0-38.8); URINE RBC 25.1 uL (0.0-20.8); URINE WBC 25.6 uL (0.0-23.2)
[2024-09-11 06:54] LABS: PH,URINE 5.5 (5.0-8.0); URINE APPEARANCE Clear; URINE BILIRRUBIN Negative (NEGATIVE); URINE BLOOD Negative; URINE COLOR Dark Yellow; URINE GLUCOSE Negative (NEGATIVE); URINE KETONE Trace (NEGATIVE); URINE LEUKOCYTE Trace; URINE NITRATE Negative; URINE PROTEIN 30 (NEGATIVE)
[2024-09-11 07:07] LABS: URINE CAST 1.17 uL (0.0-1.40)
[2024-09-11 07:08] LABS: URINE CRYSTALS FEW /HPF
[2024-09-11] MEDS ORDERED: ACETAMINOPHEN 500 MG GEL..CAP PO PRN (07:30)
[2024-09-11] MEDS ORDERED: IRON FUM,PS/FOLIC/BCOMP,C NO.9 1 CAP CAPSULE PO SCH (09:00)
[2024-09-11] MEDS ORDERED: LOSARTAN POTASSIUM 100 MG TABLET PO SCH (09:00)
[2024-09-11] MEDS ORDERED: METOPROLOL SUCCINATE 25 MG TAB.SR.24H PO SCH (09:00)
[2024-09-11] MEDS ORDERED: AMLODIPINE BESYLATE 5 MG TABLET PO SCH (09:00)
[2024-09-11 09:09] VITALS: BP 129/83; O2SAT 98
[2024-09-11] MEDS ORDERED: PANTOPRAZOLE SODIUM 40 MG/VIAL VIAL IV SCH (12:00)
[2024-09-11] MEDS ORDERED: ROSUVASTATIN CALCIUM 20 MG TABLET PO SCH (17:00)
[2024-09-11 17:15] VITALS: BP 137/78; O2SAT 97
[2024-09-12 01:12] VITALS: BP 149/87; O2SAT 98
[2024-09-12] MEDS ORDERED: TRAMADOL HCL 50 MG TABLET PO PRN (08:15)
[2024-09-12 09:13] VITALS: BP 135/80; O2SAT 95
[2024-09-12] MEDS ORDERED: MINERAL OIL 30 ML BLIST.PACK PO SCH (12:56)
[2024-09-12] MEDS ORDERED: DOCUSATE SODIUM 100MG CAP PO SCH (12:57)
[2024-09-12] MEDS ORDERED: MORPHINE SULFATE 2 MG/ML CARTRIDGE IV PRN (13:00)
[2024-09-12] MEDS ORDERED: LACTULOSE 20 G/30 ML BLIST.PACK PO NR (13:05)
[2024-09-12] MEDS ORDERED: MAGNESIUM HYDROXIDE 30 ML BLIST.PACK PO NR (13:05)
[2024-09-12 15:37] LABS: HEMATOCRIT 34.7 % (34.1-44.9); HEMOGLOBIN 11.9 g/dL (11.2-15.7); MEAN CORPUSCULAR HEMOGLOBIN 29.6 pg (25.6-32.2); RED BLOOD COUNT 4.02 M/uL (3.93-5.22); RED CELL DISTRIBUTION WIDTH 18.6 % (11.6-14.4)
[2024-09-12 15:38] LABS: BASO % 0.2 % (0.1-1.2); EOS # 0.02 (0.04-0.54); EOS % 0.1 % (0.7-7.0); LYMPH # 0.52 (1.18-3.74); LYMPH % 2.6 % (19.3-53.1); MONO # 0.89 (0.24-0.82); MONO % 4.5 % (4.7-12.5); NEUT # 18.17 (1.56-6.13); NEUT % 90.8 % (34.0-71.1); PLATELET COUNT 339 K/uL (163-369)
[2024-09-12 17:42] VITALS: BP 137/84
[2024-09-13 02:56] VITALS: BP 124/77; O2SAT 93
[2024-09-13 08:00] VITALS: BP 137/76
[2024-09-13] MEDS ORDERED: INTEGRA PLUS C1 EACH PO (13:02)
[2024-09-13] MEDS ORDERED: AMLODIPINE BESYL5 MG PO (13:02)
[2024-09-13] MEDS ORDERED: LEVOTHYROXINE25 MCG PO (13:03)
[2024-09-13] MEDS ORDERED: ROSUVASTATIN CA20 MG PO (13:03)
[2024-09-13] MEDS ORDERED: COLACE100 MG PO (13:03)
[2024-09-13] MEDS ORDERED: TOPROL XL25 M1 PO (13:03)
[2024-09-13] MEDS ORDERED: LOSARTAN POTAS100 MG PO (13:03)
[2024-09-13] MEDS ORDERED: TRAM1TAB98 PO (13:05)
== END 2024-09-13 15:09 | disposition home or self-care (01) | DRG 756 ==
LOC: ER 16:02 → MEDJ 20:15
PROVIDERS: General Practice; ADMIT Internal Medicine; ATTEND Internal Medicine
PROC: BW21YZZ Computerized Tomography (CT Scan) of Abdomen and Pelvis using Other Contrast (ICD-10-PCS; 2024-09-10)
PROC: 8E0ZXY6 Isolation (ICD-10-PCS; 2024-09-10)
PROC: 30233N1 Transfusion of Nonautologous Red Blood Cells into Peripheral Vein, Percutaneous Approach (ICD-10-PCS; principal; 2024-09-11)
DX: C55 Malignant neoplasm of uterus, part unspecified (principal); D63.0 Anemia in neoplastic disease; I10 Essential (primary) hypertension; E03.9 Hypothyroidism, unspecified; E78.5 Hyperlipidemia, unspecified; E11.9 Type 2 diabetes mellitus without complications; Z79.4 Long term (current) use of insulin; W19.XXXA Unspecified fall, initial encounter; Y93.9 Activity, unspecified; Y92.9 Unspecified place or not applicable

== ENCOUNTER 2024-11-09 10:27 | Inpatient (IN) | payer OTHER ==
[~2024-11-09] VITALS: Ht 157.5 cm; Wt 0.5 kg
[~2024-11-09 10:27] MED LIST changes: +ROSUVASTATIN CA20 MG PO
--- NOTE | 2024-11-09 10:45 | NUR ---
PACIENTE ALERTA Y ORIENTADA X 3, ACOM[place] DE HERMANA. REFIERE PACIENTE ESTABA EN JODY MEDICA CON DRA JENELLE BUTTS QUIEN LA REFIERE A ER POR BP BAJA, DEBILIDAD Y DOLOR ABDOMINAL PARA CT Y EVALUACION CON GI
[2024-11-09] MEDS ORDERED: MORPHINE SULFATE 4 MG/ML VIAL IV ONE (11:15)
--- NOTE | 2024-11-09 11:31 | NUR ---
SE EDUCA A PACIENTE SOBRE TRATAMIENTO MEDICO SE REALIZA AAMIR DE MUESTRA BLADIMIR ORDEN MEDICA Y SE ADMINISTRA MEDICAMENTOS.
[2024-11-09] MEDS ORDERED: 0.9 % SODIUM CHLORIDE 1,000 ML IV SCH ×2 (12:00→20:45)
[2024-11-09 12:22] LABS: BASO % 0.1 % (0.1-1.2); EOS # 0.00 (0.04-0.54); EOS % 0.0 % (0.7-7.0); LYMPH # 0.59 (1.18-3.74); LYMPH % 6.4 % (19.3-53.1); MEAN PLATELET VOLUME 9.90 fl (9.4-12.4); MONO # 0.76 (0.24-0.82); MONO % 8.3 % (4.7-12.5); NEUT # 7.69 (1.56-6.13); NEUT % 84.1 % (34.0-71.1)
[2024-11-09 12:26] LABS: RED CELL DISTRIBUTION WIDTH 23.3 % (11.6-14.4)
[2024-11-09 12:45] LABS: BUN CREA RATIO 18.0 (7.0-25.0); CREATININE SERUM 0.6 mg/dL (0.55-1.02); GFR 99.41; GLUCOSE FASTING 142.0 mg/dL (65-100); OSMOLALITY SERUM 283.0 MOSM/KG (275-295)
[2024-11-09] MEDS ORDERED: PIPERACILLIN/TAZOBACTAM SODIUM 3.375 GM in DEXTROSE 5 % IN WATER 100 ML IV SCH (20:42)
[2024-11-09] MEDS ORDERED: ONDANSETRON HCL 4 MG in 0.9 % SODIUM CHLORIDE 50 ML IV PRN (20:45)
[2024-11-09] MEDS ORDERED: ACETAMINOPHEN 500 MG GEL..CAP PO PRN (20:45)
[2024-11-09] MEDS ORDERED: DEXTROSE 50 % IN WATER 0.5 G/ML DISP.SYRIN IV PRN (20:45)
[2024-11-09] MEDS ORDERED: INSULIN LISPRO 1,000 UNIT/10 ML UNITS SUBCUTANEO PRN (20:45)
[2024-11-09] MEDS ORDERED: PIPERACILLIN/TAZOBACTAM SODIUM 3.375 GM VIAL IV ONE (21:31)
[2024-11-09 21:47] LABS: INR 1.13
[2024-11-09 22:41] VITALS: BP 130/78; BP 132/70; O2SAT 97
[2024-11-10] MEDS ORDERED: LEVOTHYROXINE SODIUM 50 MCG TABLET PO SCH (06:00)
[2024-11-10] MEDS ORDERED: FAMOTIDINE/PF 20 MG in 0.9 % SODIUM CHLORIDE 8 ML IV PUSH SCH (09:00)
[2024-11-10] MEDS ORDERED: LOSARTAN POTASSIUM 100 MG TABLET PO SCH (09:00)
[2024-11-10 09:43] VITALS: BP 124/82; O2SAT 99
[2024-11-10] MEDS ORDERED: DEXTROSE 50 % IN WATER 0.5 G/ML VIAL IV PRN (14:15)
[2024-11-10 15:02] LABS: URINE APPEARANCE Clear; URINE BILIRRUBIN Negative (NEGATIVE); URINE BLOOD Negative; URINE COLOR Yellow; URINE GLUCOSE Negative (NEGATIVE); URINE KETONE Negative (NEGATIVE); URINE LEUKOCYTE Negative; URINE NITRATE Negative; URINE PROTEIN Negative (NEGATIVE); URINE UROBILINOGEN 1.0 E.U./dl
[2024-11-10 15:03] LABS: URINE BACTERIA 11.9 uL (0.0-1933); URINE EPITHELIAL CELLS 3.8 uL (0.0-38.8); URINE WBC 4.7 uL (0.0-23.2)
[2024-11-10 15:06] LABS: URINE CAST 0.14 uL (0.0-1.40); URINE RBC 0.8 uL (0.0-20.8)
[2024-11-10 16:45] VITALS: BP 128/85; O2SAT 96
[2024-11-10] MEDS ORDERED: CLOTRIMAZOLE 10 MG TROCHE MM SCH (21:00)
[2024-11-10] MEDS ORDERED: CLOTRIMAZOLE 10 MG TROCHE MM ONE (21:59)
[2024-11-11 00:15] LABS: HDL 16.0 mg/dl (40-60); LDL 34.0 mg/dl (0-130); VLDL 29.0 (0-39)
[2024-11-11 00:19] LABS: CHOL HDL RATIO 4.9 (0-5.0)
[2024-11-11 00:29] LABS: BUN CREA RATIO 21.0 (7.0-25.0); CREATININE SERUM 0.34 mg/dL (0.55-1.02); GLUCOSE FASTING 72.0 mg/dL (65-100); OSMOLALITY SERUM 291.0 MOSM/KG (275-295)
[2024-11-11 00:44] LABS: GFR 191.47
[2024-11-11 01:21] VITALS: BP 121/80; O2SAT 99
[2024-11-11 08:00] VITALS: BP 108/75; O2SAT 97
[2024-11-11] MEDS ORDERED: FLUCONAZOLE IN NACL,ISO-OSM 100 ML IV SCH (13:15)
[2024-11-11 16:00] VITALS: BP 145/82; O2SAT 96
[2024-11-11] MEDS ORDERED: TRIAMCINOLONE ACETONIDE 5 GM TUBE TOP SCH (17:00)
[2024-11-11] MEDS ORDERED: AA 4.25%/CAL/LYTES/DEXT 5% 1,000 ML PERIFERAL SCH (17:00)
[2024-11-12 01:19] VITALS: BP 123/74; O2SAT 96
[2024-11-12 08:30] VITALS: BP 133/84; O2SAT 95
[2024-11-12 16:00] VITALS: BP 129/82; O2SAT 97
[2024-11-13 00:33] VITALS: BP 131/78; O2SAT 98
[2024-11-13 08:49] VITALS: BP 137/85; O2SAT 94
[2024-11-13] MEDS ORDERED: FLUMAZENIL 0.5 MG/5 ML ML IV ONE (12:45)
[2024-11-13] MEDS ORDERED: MIDAZOLAM HCL 2 MG/2 ML VIAL IV ONE (12:45)
[2024-11-13 13:27] LABS: BASO % 0.3 % (0.1-1.2); EOS # 0.00 (0.04-0.54); EOS % 0.0 % (0.7-7.0); LYMPH # 0.69 (1.18-3.74); LYMPH % 10.4 % (19.3-53.1); MEAN PLATELET VOLUME 9.70 fl (9.4-12.4); MONO # 0.52 (0.24-0.82); MONO % 7.8 % (4.7-12.5); NEUT # 5.36 (1.56-6.13); NEUT % 80.9 % (34.0-71.1); RED CELL DISTRIBUTION WIDTH 24.3 % (11.6-14.4)
[2024-11-13 13:44] LABS: ALT/SGPT 21 U/L (12-78); AST/SGOT 22 U/L (15-37); BILIRUBIN TOTAL 0.38 mg/dL (0.3-1.2); BILIRUBIN,CONJUGATED 0.20 mg/dL (0.0-0.2); CHOL HDL RATIO 3.3 (0-5.0); GLOBULINA 2.7 G/DL (2.4-3.5); GLUCOSE FASTING 99 mg/dL (65-100); HDL 20 mg/dl (40-60); LDL 20 mg/dl (0-130); OSMOLALITY SERUM 293 MOSM/KG (275-295); VLDL 26 (0-39)
[2024-11-13 13:57] LABS: BUN CREA RATIO 33 (7.0-25.0); GFR 492.33
[2024-11-13 13:58] LABS: CREATININE SERUM < 0.15 mg/dL (0.55-1.02)
[2024-11-13 14:22] LABS: INR 1.17
[2024-11-13] MEDS ORDERED: POTASSIUM CHLORIDE IN WATER 40 MEQ/100 ML PIGGYBAG IV SCH (17:00)
[2024-11-13 17:15] VITALS: BP 131/84; O2SAT 96
[2024-11-13] MEDS ORDERED: POTASSIUM CHLORIDE IN WATER 40 MEQ/100 ML PIGGYBAG IV ONE (21:00)
[2024-11-14 01:48] VITALS: BP 129/74; O2SAT 98
[2024-11-14 06:58] LABS: UREA CLEARANCE 25.8 ML/MIN
[2024-11-14] MEDS ORDERED: DIATRIZOATE MEGLUMINE, SODIUM 30 ML BOTTLE PO NR (07:00)
[2024-11-14 08:47] VITALS: BP 140/86; O2SAT 99
[2024-11-14 14:16] LABS: ALT/SGPT 26 U/L (12-78); AST/SGOT 34 U/L (15-37); BILIRUBIN TOTAL 0.41 mg/dL (0.3-1.2); GLOBULINA 2.9 G/DL (2.4-3.5); GLUCOSE FASTING 91 mg/dL (65-100); OSMOLALITY SERUM 287 MOSM/KG (275-295)
[2024-11-14 14:52] LABS: BUN CREA RATIO 26 (7.0-25.0); GFR 492.33
[2024-11-14 14:53] LABS: CREATININE SERUM < 0.15 mg/dL (0.55-1.02)
[2024-11-14] MEDS ORDERED: POTASSIUM PHOS,M-BASIC-D-BASIC 3 MM/ML VIAL IV NR (15:15)
[2024-11-14 17:24] VITALS: BP 134/96; O2SAT 95
[2024-11-15] VITALS: BP 138/89; O2SAT 96
[2024-11-15] MEDS ORDERED: MAGNESIUM SULFATE IN WATER 4 GM/100 ML PIGGYBACK IV ONE (00:15)
[2024-11-15 09:15] VITALS: BP 137/85; O2SAT 95
[2024-11-15] MEDS ORDERED: MORPHINE SULFATE 2 MG/ML SYRINGE IV PRN (12:45)
[2024-11-15 17:35] VITALS: BP 144/85; O2SAT 95
[2024-11-15] MEDS ORDERED: ONDANSETRON HCL 4 MG in 0.9 % SODIUM CHLORIDE 50 ML IV PRN (20:15)
[2024-11-16 01:14] VITALS: BP 135/84; O2SAT 98
[2024-11-16 07:03] LABS: BASO % 0.3 % (0.1-1.2); EOS # 0.00 (0.04-0.54); EOS % 0.0 % (0.7-7.0); LYMPH # 0.64 (1.18-3.74); LYMPH % 9.0 % (19.3-53.1); MEAN PLATELET VOLUME 8.90 fl (9.4-12.4); MONO # 0.64 (0.24-0.82); MONO % 9.0 % (4.7-12.5); NEUT # 5.71 (1.56-6.13); NEUT % 80.3 % (34.0-71.1); RED CELL DISTRIBUTION WIDTH 23.9 % (11.6-14.4)
[2024-11-16 07:45] LABS: ALT/SGPT 21.0 U/L (12-78); AST/SGOT 22.0 U/L (15-37); BILIRUBIN TOTAL 0.27 mg/dL (0.3-1.2); BUN CREA RATIO 26.0 (7.0-25.0); GFR 374.77; GLOBULINA 2.7 G/DL (2.4-3.5); GLUCOSE FASTING 97.0 mg/dL (65-100); OSMOLALITY SERUM 284.0 MOSM/KG (275-295)
[2024-11-16 07:49] LABS: CREATININE SERUM 0.19 mg/dL (0.55-1.02)
[2024-11-16] MEDS ORDERED: MAGNESIUM SULFATE IN WATER 50 ML IV STA (13:58)
[2024-11-16 16:00] VITALS: BP 150/95; O2SAT 97
[2024-11-16] MEDS ORDERED: POTASSIUM PHOS,M-BASIC-D-BASIC 15 MM in 0.9 % SODIUM CHLORIDE 250 ML IV ONE (16:00)
[2024-11-16] MEDS ORDERED: AMINO ACIDS/PROTEIN HYDROLYS 30 ML BLIST.PACK PO SCH (17:00)
[2024-11-16] MEDS ORDERED: AMLODIPINE BESYLATE 5 MG TABLET PO STA (17:57)
[2024-11-16] MEDS ORDERED: ENALAPRILAT DIHYDRATE 1.25 MG/ML VIAL IV PRN (18:00)
[2024-11-16] MEDS ORDERED: AMLODIPINE BESYLATE 5 MG TABLET PO ONE (18:43)
[2024-11-16] MEDS ORDERED: POTASSIUM CHLORIDE 20MEQ/100ML H2O PB IV NR (22:00)
[2024-11-17 00:27] VITALS: BP 136/75; O2SAT 96
[2024-11-17 08:00] VITALS: BP 139/90; O2SAT 94
[2024-11-17 16:33] VITALS: BP 130/87; O2SAT 95
[2024-11-18 01:12] VITALS: BP 134/78; O2SAT 96
[2024-11-18 08:00] VITALS: BP 125/82; O2SAT 95
[2024-11-18 08:46] LABS: BASO % 0.4 % (0.1-1.2); EOS # 0.02 (0.04-0.54); EOS % 0.3 % (0.7-7.0); LYMPH # 0.59 (1.18-3.74); LYMPH % 7.9 % (19.3-53.1); MEAN PLATELET VOLUME 8.90 fl (9.4-12.4); MONO # 0.67 (0.24-0.82); MONO % 9.0 % (4.7-12.5); NEUT # 5.94 (1.56-6.13); NEUT % 80.0 % (34.0-71.1); RED CELL DISTRIBUTION WIDTH 23.3 % (11.6-14.4)
[2024-11-18 09:24] LABS: ALT/SGPT 18.0 U/L (12-78); AST/SGOT 19.0 U/L (15-37); BILIRUBIN TOTAL 0.22 mg/dL (0.3-1.2); BUN CREA RATIO 37.0 (7.0-25.0); GFR 374.77; GLOBULINA 2.8 G/DL (2.4-3.5); GLUCOSE FASTING 78.0 mg/dL (65-100); OSMOLALITY SERUM 282.0 MOSM/KG (275-295)
[2024-11-18 09:27] LABS: CREATININE SERUM 0.19 mg/dL (0.55-1.02)
[2024-11-18] MEDS ORDERED: MORPHINE SULFATE 2 MG/ML SYRINGE IV PRN (14:45)
[2024-11-18] MEDS ORDERED: MAGNESIUM SULFATE IN WATER 50 ML IV NR (15:00)
[2024-11-18] MEDS ORDERED: MORPHINE SULFATE 2 MG/ML CARTRIDGE IV PRN (15:15)
[2024-11-18 17:00] VITALS: BP 126/81; O2SAT 96
[2024-11-19 01:17] VITALS: BP 123/82; O2SAT 96
[2024-11-19 08:00] VITALS: BP 130/88; O2SAT 96
[2024-11-19 16:29] VITALS: BP 130/85; O2SAT 96
[2024-11-20 00:24] VITALS: BP 125/85; O2SAT 96
[2024-11-20 07:00] LABS: BASO % 0.5 % (0.1-1.2); EOS # 0.00 (0.04-0.54); EOS % 0.0 % (0.7-7.0); LYMPH # 0.51 (1.18-3.74); LYMPH % 7.8 % (19.3-53.1); MEAN PLATELET VOLUME 8.60 fl (9.4-12.4); MONO # 0.66 (0.24-0.82); MONO % 10.1 % (4.7-12.5); NEUT # 5.26 (1.56-6.13); NEUT % 80.5 % (34.0-71.1); RED CELL DISTRIBUTION WIDTH 21.8 % (11.6-14.4)
[2024-11-20 07:08] LABS: INR 1.12
[2024-11-20 07:22] LABS: ALT/SGPT 12 U/L (12-78); AST/SGOT 17 U/L (15-37); BILIRUBIN TOTAL 0.25 mg/dL (0.3-1.2); BILIRUBIN,CONJUGATED 0.11 mg/dL (0.0-0.2); CHOL HDL RATIO 3.5 (0-5.0); GLOBULINA 2.8 G/DL (2.4-3.5); GLUCOSE FASTING 84 mg/dL (65-100); HDL 27 mg/dl (40-60); LDL 39 mg/dl (0-130); OSMOLALITY SERUM 283 MOSM/KG (275-295); VLDL 29 (0-39)
[2024-11-20 07:30] LABS: BUN CREA RATIO 33 (7.0-25.0); CREATININE SERUM < 0.15 mg/dL (0.55-1.02); GFR 492.33
[2024-11-20 07:59] LABS: UREA CLEARANCE 14.1 ML/MIN
[2024-11-20 08:29] VITALS: BP 122/84; O2SAT 96
[2024-11-20 16:00] VITALS: BP 129/85; O2SAT 97
[2024-11-21] MEDS ORDERED: POTASSIUM BICARBONATE/CIT AC 25 MEQ TABLET.EFF PO STA (00:03)
[2024-11-21] MEDS ORDERED: POTASSIUM PHOS,M-BASIC-D-BASIC 15 MM in 0.9 % SODIUM CHLORIDE 250 ML IV ONE (00:15)
[2024-11-21 00:26] VITALS: BP 131/80; O2SAT 98
[2024-11-21] MEDS ORDERED: MORPHINE SULFATE 2 MG/ML CARTRIDGE IV PRN (01:15)
[2024-11-21 09:00] VITALS: BP 134/90; O2SAT 96
[2024-11-21 17:23] VITALS: BP 132/87; O2SAT 97
[2024-11-22 00:30] VITALS: BP 149/84; O2SAT 99
[2024-11-22 07:23] LABS: BASO % 0.3 % (0.1-1.2); EOS # 0.00 (0.04-0.54); EOS % 0.0 % (0.7-7.0); LYMPH # 0.33 (1.18-3.74); LYMPH % 4.6 % (19.3-53.1); MEAN PLATELET VOLUME 8.90 fl (9.4-12.4); MONO # 0.71 (0.24-0.82); MONO % 10.0 % (4.7-12.5); NEUT # 6.02 (1.56-6.13); NEUT % 84.7 % (34.0-71.1); RED CELL DISTRIBUTION WIDTH 20.7 % (11.6-14.4)
[2024-11-22 07:51] LABS: ALT/SGPT 12.0 U/L (12-78); AST/SGOT 19.0 U/L (15-37); BILIRUBIN TOTAL 0.53 mg/dL (0.3-1.2); GLOBULINA 3.0 G/DL (2.4-3.5); GLUCOSE FASTING 81.0 mg/dL (65-100); OSMOLALITY SERUM 285.0 MOSM/KG (275-295)
[2024-11-22 08:19] LABS: BUN CREA RATIO 33.0 (7.0-25.0); CREATININE SERUM 0.18 mg/dL (0.55-1.02); GFR 398.9
[2024-11-22 09:39] VITALS: BP 140/88; O2SAT 97
[2024-11-22] MEDS ORDERED: MAGNESIUM SULFATE IN WATER 4 GM/100 ML PIGGYBACK IV NR (10:00)
[2024-11-22] MEDS ORDERED: POTASSIUM CHLORIDE IN WATER 100 ML IV NR (11:30)
[2024-11-22 16:00] VITALS: BP 112/63; O2SAT 98
[2024-11-23 00:39] VITALS: BP 122/76; O2SAT 96
[2024-11-23 08:57] VITALS: BP 153/90; O2SAT 96
[2024-11-23] MEDS ORDERED: POTASSIUM BICARBONATE/CIT AC 25 MEQ TABLET.EFF PO NR (12:15)
[2024-11-23 16:19] VITALS: BP 150/89; O2SAT 95
[2024-11-24 01:30] VITALS: BP 133/89; O2SAT 97
[2024-11-24 07:05] LABS: BASO % 0.7 % (0.1-1.2); EOS # 0.01 (0.04-0.54); EOS % 0.1 % (0.7-7.0); LYMPH # 0.52 (1.18-3.74); LYMPH % 7.3 % (19.3-53.1); MEAN PLATELET VOLUME 8.40 fl (9.4-12.4); MONO # 0.85 (0.24-0.82); MONO % 11.9 % (4.7-12.5); NEUT # 5.69 (1.56-6.13); NEUT % 79.7 % (34.0-71.1); RED CELL DISTRIBUTION WIDTH 20.2 % (11.6-14.4)
[2024-11-24 07:53] LABS: ALT/SGPT 9.0 U/L (12-78); AST/SGOT 16.0 U/L (15-37); BILIRUBIN TOTAL 0.39 mg/dL (0.3-1.2); GLOBULINA 3.0 G/DL (2.4-3.5); GLUCOSE FASTING 83.0 mg/dL (65-100); OSMOLALITY SERUM 293.0 MOSM/KG (275-295)
[2024-11-24 08:26] LABS: BUN CREA RATIO 41.0 (7.0-25.0); CREATININE SERUM 0.17 mg/dL (0.55-1.02); GFR 426.09
[2024-11-24] MEDS ORDERED: POTASSIUM CHLORIDE IN WATER 100 ML IV SCH (12:00)
[2024-11-24] MEDS ORDERED: MAGNESIUM SULFATE IN WATER 4 GM/100 ML PIGGYBACK IV STA (12:21)
[2024-11-24] MEDS ORDERED: DEXTROSE 5 % IN WATER 1,000 ML IV SCH (12:30)
[2024-11-24 17:22] VITALS: BP 158/96; O2SAT 97
[2024-11-24] MEDS ORDERED: MORPHINE SULFATE 2 MG/ML CARTRIDGE IV PRN (22:30)
[2024-11-25 01:12] VITALS: BP 127/89; O2SAT 97
[2024-11-25 08:44] VITALS: BP 140/84; O2SAT 95
[2024-11-25 16:18] VITALS: BP 137/85; O2SAT 96
[2024-11-26 02:27] VITALS: BP 139/82; O2SAT 97
[2024-11-26 07:41] LABS: BASO % 0.6 % (0.1-1.2); EOS # 0.04 (0.04-0.54); EOS % 0.4 % (0.7-7.0); LYMPH # 0.56 (1.18-3.74); LYMPH % 6.3 % (19.3-53.1); MEAN PLATELET VOLUME 8.70 fl (9.4-12.4); MONO # 0.90 (0.24-0.82); MONO % 10.0 % (4.7-12.5); NEUT # 7.37 (1.56-6.13); NEUT % 82.3 % (34.0-71.1); RED CELL DISTRIBUTION WIDTH 19.5 % (11.6-14.4)
[2024-11-26 08:15] LABS: ALT/SGPT 7.0 U/L (12-78); AST/SGOT 15.0 U/L (15-37); BILIRUBIN TOTAL 0.32 mg/dL (0.3-1.2); BUN CREA RATIO 29.0 (7.0-25.0); GFR 426.09; GLOBULINA 3.0 G/DL (2.4-3.5); GLUCOSE FASTING 71.0 mg/dL (65-100); OSMOLALITY SERUM 288.0 MOSM/KG (275-295)
[2024-11-26 08:21] LABS: CREATININE SERUM 0.17 mg/dL (0.55-1.02)
[2024-11-26 08:47] VITALS: BP 142/93; O2SAT 96
[2024-11-26] MEDS ORDERED: POTASSIUM CHLORIDE IN WATER 100 ML IV NR (12:00)
[2024-11-26] MEDS ORDERED: MAGNESIUM SULFATE IN WATER 4 GM/100 ML PIGGYBACK IV STA (14:18)
[2024-11-26] MEDS ORDERED: GLYCOPYRROLATE 1 MG/5 ML VIAL IJ SCH (14:27)
[2024-11-26 16:11] VITALS: BP 98/67; O2SAT 95
[2024-11-27 00:55] VITALS: BP 147/84; O2SAT 98
[2024-11-27 06:46] LABS: BASO % 0.9 % (0.1-1.2); EOS # 0.07 (0.04-0.54); EOS % 0.9 % (0.7-7.0); LYMPH # 0.76 (1.18-3.74); LYMPH % 10.0 % (19.3-53.1); MEAN PLATELET VOLUME 8.90 fl (9.4-12.4); MONO # 0.83 (0.24-0.82); MONO % 10.9 % (4.7-12.5); NEUT # 5.83 (1.56-6.13); NEUT % 76.6 % (34.0-71.1); RED CELL DISTRIBUTION WIDTH 19.3 % (11.6-14.4)
[2024-11-27 07:38] LABS: ALT/SGPT 7.0 U/L (12-78); AST/SGOT 14.0 U/L (15-37); BILIRUBIN TOTAL 0.25 mg/dL (0.3-1.2); BUN CREA RATIO 33.0 (7.0-25.0); GFR 333.87; GLOBULINA 2.9 G/DL (2.4-3.5); GLUCOSE FASTING 77.0 mg/dL (65-100); OSMOLALITY SERUM 289.0 MOSM/KG (275-295)
[2024-11-27 07:41] LABS: CREATININE SERUM 0.21 mg/dL (0.55-1.02)
[2024-11-27 08:00] VITALS: BP 136/85; O2SAT 96
[2024-11-27] MEDS ORDERED: MAGNESIUM SULFATE IN WATER 50 ML IV STA (10:58)
[2024-11-27] MEDS ORDERED: POTASSIUM CHLORIDE IN WATER 100 ML IV NR (11:00)
[2024-11-27 16:00] VITALS: BP 136/87; O2SAT 98
[2024-11-28 00:57] VITALS: BP 120/83; O2SAT 97
[2024-11-28 09:36] VITALS: BP 132/81; O2SAT 97
[2024-11-28 12:01] LABS: BASO % 0.6 % (0.1-1.2); EOS # 0.04 (0.04-0.54); EOS % 0.5 % (0.7-7.0); LYMPH # 0.58 (1.18-3.74); LYMPH % 7.3 % (19.3-53.1); MEAN PLATELET VOLUME 8.70 fl (9.4-12.4); MONO # 0.79 (0.24-0.82); MONO % 9.9 % (4.7-12.5); NEUT # 6.50 (1.56-6.13); NEUT % 81.2 % (34.0-71.1); RED CELL DISTRIBUTION WIDTH 19.2 % (11.6-14.4)
[2024-11-28 12:29] LABS: ALT/SGPT 7.0 U/L (12-78); AST/SGOT 17.0 U/L (15-37); BILIRUBIN TOTAL 0.22 mg/dL (0.3-1.2); BUN CREA RATIO 30.0 (7.0-25.0); CREATININE SERUM 0.2 mg/dL (0.55-1.02); GFR 353.23; GLOBULINA 2.9 G/DL (2.4-3.5); GLUCOSE FASTING 95.0 mg/dL (65-100); OSMOLALITY SERUM 290.0 MOSM/KG (275-295)
[2024-11-28] MEDS ORDERED: MAGNESIUM SULFATE IN WATER 50 ML IV STA (13:09)
[2024-11-28] MEDS ORDERED: ONDANSETRON HCL 4 MG in DEXTROSE 5 % IN WATER 50 ML IV PRN (13:15)
[2024-11-28 16:27] VITALS: BP 127/85; O2SAT 95
[2024-11-28] MEDS ORDERED: POTASSIUM CHLORIDE IN WATER 40 MEQ/100 ML PIGGYBAG IV SCH (17:00)
[2024-11-28] MEDS ORDERED: CIPROFLOXACIN IN 5 % DEXTROSE 200 ML IV SCH (21:00)
[2024-11-29 01:27] VITALS: BP 132/86; O2SAT 97
[2024-11-29 07:01] LABS: BASO % 0.9 % (0.1-1.2); EOS # 0.07 (0.04-0.54); EOS % 0.9 % (0.7-7.0); LYMPH # 0.56 (1.18-3.74); LYMPH % 7.4 % (19.3-53.1); MEAN PLATELET VOLUME 9.30 fl (9.4-12.4); MONO # 1.01 (0.24-0.82); NEUT # 5.80 (1.56-6.13); NEUT % 76.9 % (34.0-71.1); RED CELL DISTRIBUTION WIDTH 19.3 % (11.6-14.4)
[2024-11-29 07:11] LABS: MONO % 13.4 % (4.7-12.5)
[2024-11-29 07:17] LABS: AST/SGOT 18 U/L (15-37); BILIRUBIN TOTAL 0.16 mg/dL (0.3-1.2); GLOBULINA 2.8 G/DL (2.4-3.5); GLUCOSE FASTING 94 mg/dL (65-100); OSMOLALITY SERUM 290 MOSM/KG (275-295)
[2024-11-29 07:19] LABS: ALT/SGPT < 6 U/L (12-78); BUN CREA RATIO 40 (7.0-25.0); GFR 492.33
[2024-11-29 07:20] LABS: CREATININE SERUM < 0.15 mg/dL (0.55-1.02)
[2024-11-29 08:00] VITALS: BP 136/89; O2SAT 95
[2024-11-29] MEDS ORDERED: MAGNESIUM SULFATE IN WATER 4 GM/100 ML PIGGYBACK IV STA (10:19)
[2024-11-29] MEDS ORDERED: POTASSIUM CHLORIDE IN WATER 40 MEQ/100 ML PIGGYBAG IV SCH (13:00)
[2024-11-29 17:30] VITALS: BP 106/60; O2SAT 95
[2024-11-30 00:35] VITALS: BP 113/62; O2SAT 96
[2024-11-30 08:00] VITALS: BP 137/80; O2SAT 98
[2024-11-30 16:42] VITALS: BP 127/90; O2SAT 95
[2024-11-30 23:44] LABS: BASO % 0.4 % (0.1-1.2); EOS # 0.04 (0.04-0.54); EOS % 0.4 % (0.7-7.0); LYMPH # 0.66 (1.18-3.74); LYMPH % 7.0 % (19.3-53.1); MEAN PLATELET VOLUME 9.20 fl (9.4-12.4); MONO # 1.14 (0.24-0.82); NEUT # 7.43 (1.56-6.13); NEUT % 79.3 % (34.0-71.1); RED CELL DISTRIBUTION WIDTH 19.5 % (11.6-14.4)
[2024-11-30 23:46] LABS: MONO % 12.2 % (4.7-12.5)
[2024-12-01] VITALS: BP 129/81; O2SAT 96
[2024-12-01 07:19] LABS: BASO % 0.3 % (0.1-1.2); EOS # 0.06 (0.04-0.54); EOS % 0.7 % (0.7-7.0); LYMPH # 0.70 (1.18-3.74); LYMPH % 7.7 % (19.3-53.1); MEAN PLATELET VOLUME 9.20 fl (9.4-12.4); MONO # 1.21 (0.24-0.82); NEUT # 7.07 (1.56-6.13); NEUT % 77.3 % (34.0-71.1); RED CELL DISTRIBUTION WIDTH 19.6 % (11.6-14.4)
[2024-12-01 07:35] LABS: MONO % 13.2 % (4.7-12.5)
[2024-12-01 08:12] LABS: AST/SGOT 20 U/L (15-37); BILIRUBIN TOTAL 0.30 mg/dL (0.3-1.2); GLOBULINA 2.7 G/DL (2.4-3.5); GLUCOSE FASTING 89 mg/dL (65-100); OSMOLALITY SERUM 276 MOSM/KG (275-295)
[2024-12-01 08:20] LABS: ALT/SGPT < 6 U/L (12-78); BUN CREA RATIO 24 (7.0-25.0); GFR 273.03
[2024-12-01 08:22] LABS: CREATININE SERUM 0.25 mg/dL (0.55-1.02)
[2024-12-01 08:30] VITALS: BP 121/85
[2024-12-01] MEDS ORDERED: MAGNESIUM SULFATE IN WATER 4GM/50ML PIGGYBAG IV NR (10:30)
[2024-12-01] MEDS ORDERED: POTASSIUM CHLORIDE IN WATER 40 MEQ/100 ML PIGGYBAG IV SCH (12:00)
[2024-12-01] MEDS ORDERED: MAGNESIUM SULFATE IN WATER 4 GM/100 ML PIGGYBACK IV NR (12:30)
[2024-12-01] MEDS ORDERED: RINGERS SOLUTION,LACTATED 1,000 ML IV SCH (14:15)
[2024-12-01 17:16] VITALS: BP 115/76; O2SAT 95
[2024-12-01] MEDS ORDERED: MAGNESIUM SULFATE IN WATER 50 ML IV ONE (20:15)
[2024-12-01] MEDS ORDERED: MAGNESIUM SULFATE IN WATER 2 GM/50 ML PIGGYBAG IV ONE (20:19)
[2024-12-02 00:12] VITALS: BP 103/71; O2SAT 98
[2024-12-02 08:38] LABS: BUN CREA RATIO 20.0 (7.0-25.0); GFR 273.03; GLUCOSE FASTING 91.0 mg/dL (65-100); OSMOLALITY SERUM 278.0 MOSM/KG (275-295)
[2024-12-02 08:44] LABS: CREATININE SERUM 0.25 mg/dL (0.55-1.02)
[2024-12-02] MEDS ORDERED: MAGNESIUM CHLORIDE 70 MG TABLET.DR PO SCH (09:00)
[2024-12-02 09:46] VITALS: BP 127/85; O2SAT 98
[2024-12-02 16:00] VITALS: BP 128/85; O2SAT 95
[2024-12-03 01:26] VITALS: BP 119/86; O2SAT 97
[2024-12-03] MEDS ORDERED: MORPHINE SULFATE 2 MG/ML CARTRIDGE IV PRN (04:00)
[2024-12-03 08:37] VITALS: BP 109/66; O2SAT 96
[2024-12-03 16:00] VITALS: BP 119/79; O2SAT 97
[2024-12-04 02:55] VITALS: BP 113/74; O2SAT 94
[2024-12-04 06:51] LABS: BASO % 0.5 % (0.1-1.2); EOS # 0.03 (0.04-0.54); EOS % 0.3 % (0.7-7.0); LYMPH # 0.55 (1.18-3.74); LYMPH % 6.3 % (19.3-53.1); MEAN PLATELET VOLUME 9.30 fl (9.4-12.4); MONO # 1.01 (0.24-0.82); MONO % 11.6 % (4.7-12.5); NEUT # 7.06 (1.56-6.13); NEUT % 80.7 % (34.0-71.1); RED CELL DISTRIBUTION WIDTH 18.3 % (11.6-14.4)
[2024-12-04 07:18] LABS: ALT/SGPT 7.0 U/L (12-78); AST/SGOT 24.0 U/L (15-37); BILIRUBIN TOTAL 0.26 mg/dL (0.3-1.2); GLOBULINA 2.8 G/DL (2.4-3.5); GLUCOSE FASTING 82.0 mg/dL (65-100); OSMOLALITY SERUM 285.0 MOSM/KG (275-295)
[2024-12-04 07:36] LABS: BUN CREA RATIO 20.0 (7.0-25.0); GFR 273.03
[2024-12-04 07:37] LABS: CREATININE SERUM 0.25 mg/dL (0.55-1.02)
[2024-12-04] MEDS ORDERED: MAGNESIUM SULFATE IN WATER 4 GM/100 ML PIGGYBACK IV STA (07:41)
[2024-12-04 08:00] VITALS: BP 129/84; O2SAT 100
[2024-12-04] MEDS ORDERED: POTASSIUM PHOS,M-BASIC-D-BASIC 15 MM in 0.9 % SODIUM CHLORIDE 250 ML IV NR (10:30)
[2024-12-04] MEDS ORDERED: POTASSIUM CHLORIDE IN WATER 40 MEQ/100 ML PIGGYBAG IV SCH (13:00)
[2024-12-04 17:20] VITALS: BP 122/85; O2SAT 95
[2024-12-05 00:26] VITALS: BP 126/85; O2SAT 99
[2024-12-05 08:00] VITALS: BP 130/82; O2SAT 96
[2024-12-05 08:30] LABS: BASO % 0.4 % (0.1-1.2); EOS # 0.01 (0.04-0.54); EOS % 0.1 % (0.7-7.0); LYMPH # 0.68 (1.18-3.74); LYMPH % 6.9 % (19.3-53.1); MEAN PLATELET VOLUME 9.20 fl (9.4-12.4); MONO # 1.18 (0.24-0.82); NEUT # 7.82 (1.56-6.13); NEUT % 79.9 % (34.0-71.1); RED CELL DISTRIBUTION WIDTH 18.7 % (11.6-14.4)
[2024-12-05 08:35] LABS: MONO % 12.1 % (4.7-12.5)
[2024-12-05 09:41] LABS: AST/SGOT 23 U/L (15-37); BILIRUBIN TOTAL 0.27 mg/dL (0.3-1.2); BUN CREA RATIO 18 (7.0-25.0); GFR 316.43; GLOBULINA 2.8 G/DL (2.4-3.5); GLUCOSE FASTING 80 mg/dL (65-100); OSMOLALITY SERUM 288 MOSM/KG (275-295)
[2024-12-05 09:42] LABS: ALT/SGPT < 6 U/L (12-78); CREATININE SERUM 0.22 mg/dL (0.55-1.02)
[2024-12-05] MEDS ORDERED: DEXTROSE 5 % IN WATER 1,000 ML IV SCH (10:30)
[2024-12-05] MEDS ORDERED: POTASSIUM BICARBONATE/CIT AC 25 MEQ TABLET.EFF PO NR (11:00)
[2024-12-05] MEDS ORDERED: MAGNESIUM CHLORIDE 70 MG TABLET.DR PO SCH (13:00)
[2024-12-05] MEDS ORDERED: ENOXAPARIN SODIUM 40 MG/0.4 ML SYRINGE SUBCUTANEO NR (14:00)
[2024-12-05 16:00] VITALS: BP 124/85; O2SAT 96
[2024-12-05] MEDS ORDERED: POTASSIUM BICARBONATE/CIT AC 25 MEQ TABLET.EFF PO SCH (17:00)
[2024-12-05] MEDS ORDERED: NAPH,MB-DB/K PH,MBDB 1 PKT PACKET PO SCH (17:00)
[2024-12-05] MEDS ORDERED: FAMOTIDINE/PF 20 MG/2 ML VIAL IV SCH (21:00)
[2024-12-06 00:57] VITALS: BP 133/85; O2SAT 97
[2024-12-06 08:00] VITALS: BP 125/80; O2SAT 97
[2024-12-06] MEDS ORDERED: ENOXAPARIN SODIUM 40 MG/0.4 ML SYRINGE SUBCUTANEO SCH (09:00)
[2024-12-06 11:23] LABS: AST/SGOT 26 U/L (15-37); BILIRUBIN TOTAL 0.19 mg/dL (0.3-1.2); BUN CREA RATIO 11 (7.0-25.0); CREATININE SERUM 0.37 mg/dL (0.55-1.02); GFR 173.67; GLOBULINA 2.8 G/DL (2.4-3.5); GLUCOSE FASTING 109 mg/dL (65-100); OSMOLALITY SERUM 284 MOSM/KG (275-295)
[2024-12-06 11:24] LABS: ALT/SGPT < 6 U/L (12-78)
[2024-12-06] MEDS ORDERED: MAGNESIUM SULFATE IN WATER 4 GM/100 ML PIGGYBACK IV STA (13:20)
[2024-12-06 13:49] LABS: BASO % 0.3 % (0.1-1.2); EOS # 0.01 (0.04-0.54); EOS % 0.1 % (0.7-7.0); LYMPH # 0.54 (1.18-3.74); LYMPH % 5.0 % (19.3-53.1); MEAN PLATELET VOLUME 9.20 fl (9.4-12.4); MONO # 1.13 (0.24-0.82); MONO % 10.4 % (4.7-12.5); NEUT # 9.07 (1.56-6.13); NEUT % 83.6 % (34.0-71.1); RED CELL DISTRIBUTION WIDTH 18.6 % (11.6-14.4)
[2024-12-06 16:00] VITALS: BP 118/81; O2SAT 97
[2024-12-06] MEDS ORDERED: POTASSIUM CHLORIDE IN WATER 100 ML IV NR (17:00)
[2024-12-07 01:49] VITALS: BP 112/71; O2SAT 96
[2024-12-07 06:48] LABS: BASO % 0.3 % (0.1-1.2); EOS # 0.01 (0.04-0.54); EOS % 0.1 % (0.7-7.0); LYMPH # 0.58 (1.18-3.74); LYMPH % 5.4 % (19.3-53.1); MEAN PLATELET VOLUME 9.00 fl (9.4-12.4); MONO # 0.97 (0.24-0.82); MONO % 9.0 % (4.7-12.5); NEUT # 9.19 (1.56-6.13); NEUT % 84.7 % (34.0-71.1); RED CELL DISTRIBUTION WIDTH 18.3 % (11.6-14.4)
[2024-12-07 07:46] LABS: ALT/SGPT 7.0 U/L (12-78); AST/SGOT 28.0 U/L (15-37); BILIRUBIN TOTAL 0.23 mg/dL (0.3-1.2); BUN CREA RATIO 15.0 (7.0-25.0); CREATININE SERUM 0.39 mg/dL (0.55-1.02); GFR 163.43; GLOBULINA 3.2 G/DL (2.4-3.5); GLUCOSE FASTING 95.0 mg/dL (65-100); OSMOLALITY SERUM 279.0 MOSM/KG (275-295)
[2024-12-07 08:00] VITALS: BP 111/78; O2SAT 97
[2024-12-07] MEDS ORDERED: CIPRO500 MG PO (12:00)
[2024-12-07] MEDS ORDERED: METRONIDAZOLE500 MG PO (12:01)
[2024-12-07] MEDS ORDERED: INTESTINEX680 M1 PO (12:01)
[2024-12-07] MEDS ORDERED: LOSARTAN POTAS100 MG PO (12:03)
[2024-12-07] MEDS ORDERED: FENTANYL1 EAC7 TD (12:03)
[2024-12-07] MEDS ORDERED: PHOS-NAK PACKE1 EACH PO (12:04)
[2024-12-07] MEDS ORDERED: MAGNESIUM CHLOR70 MG PO (12:04)
[2024-12-07] MEDS ORDERED: KLOR-CON M2020 MEQ PO (12:05)
[2024-12-07] MEDS ORDERED: TRAM1TAB98 PO (12:06)
[2024-12-07] MEDS ORDERED: DOCUSATE CALCI240 MG PO (12:06)
[2024-12-07] MEDS ORDERED: PROTEINEX-18 LI30 ML PO (12:07)
[2024-12-07] MEDS ORDERED: LEVOTHYROXINE50 MCG PO (12:07)
[2024-12-07] MEDS ORDERED: ZOFRAN8 MG PO (12:08)
[2024-12-07] MEDS ORDERED: NAPH,MB-DB/K PH,MBDB 1 PKT PACKET PO SCH (17:00)
== END 2024-12-07 14:34 | disposition home or self-care (01) | DRG 394 ==
LOC: ER 10:32 → SURG 21:04 → SEC-K 21:04 → SURG 11-10 01:08 → SURH 11-11 13:55
PROVIDERS: Emergency Medicine; General Practice; Internal Medicine; ADMIT Internal Medicine; ATTEND Internal Medicine
PROC: BW21YZZ Computerized Tomography (CT Scan) of Abdomen and Pelvis using Other Contrast (ICD-10-PCS; 2024-11-09)
PROC: 8E0ZXY6 Isolation (ICD-10-PCS; 2024-11-11)
PROC: 02HV33Z Insertion of Infusion Device into Superior Vena Cava, Percutaneous Approach (ICD-10-PCS; 2024-11-11)
PROC: B548ZZA Ultrasonography of Superior Vena Cava, Guidance (ICD-10-PCS; 2024-11-11)
PROC: 0DJ08ZZ Inspection of Upper Intestinal Tract, Via Natural or Artificial Opening Endoscopic (ICD-10-PCS; principal; 2024-11-13)
PROC: BW21YZZ Computerized Tomography (CT Scan) of Abdomen and Pelvis using Other Contrast (ICD-10-PCS; 2024-11-14)
PROC: BB24YZZ Computerized Tomography (CT Scan) of Bilateral Lungs using Other Contrast (ICD-10-PCS; 2024-11-16)
PROC: 30233N1 Transfusion of Nonautologous Red Blood Cells into Peripheral Vein, Percutaneous Approach (ICD-10-PCS; 2024-11-20)
DX: K63.2 Fistula of intestine (principal); C78.6 Secondary malignant neoplasm of retroperitoneum and peritoneum; C79.82 Secondary malignant neoplasm of genital organs; K56.690 Other partial intestinal obstruction; D84.89 Other immunodeficiencies; J90 Pleural effusion, not elsewhere classified; J98.11 Atelectasis; K52.89 Other specified noninfective gastroenteritis and colitis; E11.649 Type 2 diabetes mellitus with hypoglycemia without coma; K44.9 Diaphragmatic hernia without obstruction or gangrene; E86.0 Dehydration; R19.09 Other intra-abdominal and pelvic swelling, mass and lump; D64.89 Other specified anemias; R63.0 Anorexia; R47.02 Dysphasia; R05.9 Cough, unspecified; I10 Essential (primary) hypertension; E03.9 Hypothyroidism, unspecified; E78.5 Hyperlipidemia, unspecified; Z74.01 Bed confinement status; Z88.6 Allergy status to analgesic agent